=== PATIENT | female | born 1935 | race Caucasian/White ===

== ENCOUNTER → 2016-11-25 | Outpatient (CLI) | payer OTHER, BC ==
[~2016-11-25] MED LIST: ACTEMRA80 MG/4 ML; APHEN325 MG PO; ASPIRIN81 M2 PO; AZITHROMYCIN 2250 MG; CALCIUM 600 +1 EAC1 PO; CEFTIN 250 MG250 MG PO; CELEBREX 200 M200 M1 PO; CIPROFLOXACIN500 M1 PO; CLIMARA 0.00.0375 MG SUBQ; COLACE 100 MG100 MG PO; COLACE100 MG PO; ENOXAPARIN30 MG/0.3 SQ; ESTRACE PO; FERREX-150 PLU150 MG PO; FISH OIL 1,001000 M1 PO; FISH OIL 1,001000 M2 PO; FLAGYL500 MG PO; FOLIC ACID1 MG PO; HYDROCODON-ACE1 EAC7 PO; HYDROCODON-ACE1 EAC8 PO; LIPITOR 20 MG T20 M1 PO; LORTAB 5 MG/5001 TA1 PO; LORTAB 7.5-3251 EACH PO; MAGNESIUM250 M1 PO; METFORMIN HCL500 MG PO; METHOTREXATE 22.5 MG PO; MIRALAX17 GM PO; MIRALAX255 GM PO; MULTIVITAMINS PO; MULTIVITAMINS1 EAC7 PO; NORCO 5-325 TA1 EACH PO; OXYCODONE-ACET1 EACH PO; PAIN RELIEVER325 MG PO; POTASSIUM20 PO; PREDNISONE 10 M10 MG PO; PREDNISONE 20 M20 M1 PO; PREDNISONE 5 MG5 M1 PO; PRILOSEC40 MG PO; PROTONIX40 M1 PO; SERTRALINE HCL50 MG PO; SIMVASTATIN40 MG PO; TRAMADOL 50 MG50 MG PO; TRILEPTAL150 MG PO; VICODIN 5-5001 EACH PO; VITAMIN D 5050000 I1 PO; ZOCOR 10 MG TAB10 MG PO; ZOFRAN ODT4 MG PO; ZOLOFT 50 MG TA50 M1 PO; ZOLOFT25 MG PO; ZPAK PO; ZYRTEC10 M2 PO
== END ==
LOC: RAD 11:16
DX: R06.02 Shortness of breath (principal)

== ENCOUNTER 2016-11-27 07:36 | Inpatient (IN) | payer OTHER, BC ==
[~2016-11-27] VITALS: Ht 154.9 cm; Wt 72.1 kg
--- NOTE | ~2016-11-27 | 2DMMODE ---
[facility] [address] [facility] [place] [address] 2 D/M-MODE ECHOCARDIOGRAM Name: BRIELLE HALE TINA Room #: 207-P [facility] IN ..#: [id number] Admission: 11/27/16 Attend Phys: Randall Richardson MD Discharge: Date of : 37 Date of Service: 11/28/16 1311 Report #: [id number] THIS REPORT FOR: //name// APPROVED REPORT Study performed: 11/28/2016 10:11:46 EXAM: Comprehensive 2D, Doppler, and color-flow Echocardiogram Patient Location: Bedside Room #: 207 Blood Pressure: 122/63 mmHg HR: 86 bpm Other Information Study Quality: Good Indications Atrial Fibrillation 2D Dimensions LVEF(%): 48.15 (>50%) IVSd: 8.35 (7-11mm) LVOT Diam: 18.00 (18-24mm) LVDd: 41.39 mm PWd: 8.89 (7-11mm) Ascending Ao: 28.07 (22-36mm) LVDs: 31.48 (25-40mm) Aortic Root: 29.80 mm Lee's LVEF: 48.15 % Volumes Left Atrial Volume (Systole) Single Plane 4CH: 29.28 mL Single Plane 2CH: 14.81 mL LA ESV Index: 15.00 mL/m2 Aortic Valve AoV Peak Jimmy.: 0.97 m/s AO Peak Gr.: 4.20 mmHg LVOT Max P.89 mmHg LVOT Max V: 0.69 m/s Mitral Valve E/A Ratio: 0.8 MV Decel. Time: 210.47 ms MV E Max Jimmy.: 0.52 m/s [facility] [address] [place] [address] 2 D/M-MODE ECHOCARDIOGRAM Name: BRIELLE HALEN Room #: 207-[facility] IN [facility].#: [id number] Admission: 11/27/16 Attend Phys: Randall Richardson MD Discharge: Date of : 37 Date of Service: 11/28/16 1311 Report #: [id number] MV A Jimmy.: 0.67 m/s MV PHT: 61.04 ms Pulmonary Valve PV Peak Jimmy.: 0.70 m/s PV Peak Gr.: 1.99 mmHg MI End Vmax: 1.15 m/s Tricuspid Valve TR Peak Jimmy.: 2.65 m/s RAP Estimate: 5.00 mmHg TR Peak Gr.: 28.01 mmHg PA Pressure: 33.00 mmHg Left Ventricle The left ventricle is normal size. There is normal LV segmental wall motion. There is normal left ventricular wall thickness. Left ventricular systolic function is normal. The left ventricular ejection fraction is within the normal range. LVEF is 55-60%. Grade I - abnormal relaxation pattern. Right Ventricle The right ventricle is normal size. The right ventricular systolic function is normal. Atria The left atrium size is normal. The right atrium size is normal. Aortic Valve The aortic valve is normal in structure. No aortic regurgitation is present. There is no aortic valvular stenosis. Mitral Valve The mitral valve is normal in structure. Trace mitral regurgitation. No evidence of mitral valve stenosis. Tricuspid Valve The tricuspid valve is normal in structure. Trace tricuspid regurgitation. Pulmonic Valve The pulmonary valve is normal in structure. There is no pulmonic valvular regurgitation. Great Vessels The aortic root is normal in size. IVC is normal in size and collapses with >50% inspiration [facility] [address] [place] [address] 2 D/M-MODE ECHOCARDIOGRAM Name: BRIELLE HALEN Room #: 207-P [facility] IN .R.#: [id number] Admission: 11/27/16 Attend Phys: Randall Richardson MD Discharge: Date of : 37 Date of Service: 11/28/16 1311 Report #: [id number] Pericardium There is no pericardial effusion. <Conclusion> Left ventricular systolic function is normal. There is normal LV segmental wall motion. LVEF 55-60%. Grade I - abnormal relaxation pattern. The aortic valve is normal in structure. No aortic regurgitation or stenosis The mitral valve is normal in structure. No mitral regurgitation. Pulmonary artery pressure of 30mmHg. There is no pericardial effusion. <ELECTRONICALLY SIGNED> By: Kvng Yuan MD, [facility] 11/28/16 131 10 10 Kvng Yuan MD, FAC /INF
--- NOTE | ~2016-11-27 | EKG ---
[address] [employer] [place] [place] [address] ELECTROCARDIOGRAM REPORT Name: ALEXIABRIELLEKELSEY CARDOSOLYN Room #: 207-P ADM IN M.R.#: [id number] Admission: 11/27/16 Attend Phys: Santosh Seymour DO Discharge: Date of : 36 Report #: [id number] THIS REPORT FOR: //name// [facility] ED Test Date: 2016-11-27 Test Time: 07:47:35 Pat Name: BRIELLE HALE Department: Room: 207 Gender: F School Secretary: Holly BENTLEY : 1935 Requested By: Jb Castro Order Number: [id number] MD: Kvng Yuan Measurements Intervals [place] Rate: 139 P: 0 [place]: 136 QRS: -62 QRSD: 104 T: 102 QT: 347 QTc: 528 Interpretive Statements Supraventricular tachycardia occasional premature ventricular complexes left anterior hemiblock nonspecific intraventricular conduction delay no previous ECGs available for comparison Electronically Signed On 11-29-2016 8:50:41 CDT by Kvng Yuan [email or web address] <ELECTRONICALLY SIGNED> By: Kvng Yuan MD, [facility] 11/29/16 0850 Kvng Yuan MD, [facility] /EPI
--- NOTE | ~2016-11-27 | HC ---
[facility] [place] [address] CONSULTATION Name: BRIELLE HALEN Room #: 207-P ADM IN M.R.#: [id number] Admission: 11/27/16 Attend Phys: Randall Richardson MD Discharge: Date of : 36 Report #: [id number] THIS REPORT FOR: //name// CC: Micheal Richardson HISTORY OF PRESENT ILLNESS: The patient is an 81-year-old female, never seen Cardiology before, Dr. Mazariegos's patient, admitted by Dr. Montes who is the hospitalist at least for this weekend. She had been having some progressive shortness of breath and dyspnea and at times has had this chest heaviness and pressure, the worse was 2 weeks ago and that seemed to last all night. That was intermittent. She had marked decrease in exercise tolerance since that event 2 weeks ago. Not precipitated by any significant exertion, but she does note a marked decreased in which she has been able to do, can no longer go up a flight of stairs and that is something very unusual for her. She denies PND, orthopnea. She still lies flat in bed. Perhaps some slight intermittent edema. She does not. as I stated, have significant cardiac history, but has had intermittent pressure, shortness of breath, and does not feel the palpitations, but she presented in atrial fibrillation with rapid ventricular response with a rate in the 140 to 150. She subsequently converted on a Cardizem drip, which had been initiated in the ER. She did not have any syncope or presyncope but did have some dizzy or some lightheadedness. Her medications have been Protonix 40, simvastatin 40, folic acid, prednisone, vitamin D, Colace, potassium 20, and then more recently has had some Ceftin and metronidazole for perhaps some diarrhea issue. 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 Todd. I do not have any other records of that. SOCIAL HISTORY: She is a social drinker. Nonsmoker. . No biological children. FAMILY HISTORY: Positive, mother had an infarct at 62, siblings have not had any issues. REVIEW OF SYSTEMS: Negative except for the progressive dyspnea, shortness of breath, and as stated above. LABORATORY DATA: Chemistry, potassium 3.9, creatinine 1.1, glucose 145. Troponin negative. BNP 343. No liver function test. H and H 14 and 41, white count 7.6. CURRENT MEDICATIONS: Folic acid, prednisone, Protonix, cefuroxime [address] [facility] [address] [place] [address] CONSULTATION Name: BRIELLE HALE TINA Room #: 207-P ADM IN M.R.#: [id number] Admission: 11/27/16 Attend Phys: Randall Richardson MD Discharge: Date of : 37 Report #: [id number] potassium, diltiazem drip now at 5 mg an hour. PHYSICAL EXAMINATION: VITAL SIGNS: Blood pressure 100/60, pulse is currently 80 and regular. HEENT: Eyes reveal xanthelasmas. Pharynx is clear. NECK: Shows preserved upstrokes without JVD or bruits. LUNGS: Clear. CARDIOVASCULAR: Regular rate and rhythm, S1, S2. There is a faint holosystolic murmur. ABDOMEN: Soft. No HSM or abdominal bruit. EXTREMITIES: Reveal trace of edema. Distal pulses were intact. NEUROLOGIC: Nonfocal. SKIN: Warm and dry without xanthoma or ulcer. MUSCULOSKELETAL: Some generalized arthritic changes, some slight bogginess of the hand joints and valgus deformity of the knee, prior scars. ASSESSMENT: 1. Atrial fibrillation with rapid ventricular response. 2. Recurrent chest pain, possible anginal equivalent. 3. History of bronchitis, recurrent cough. 4. Hypertension. 5. Rheumatoid arthritis. 6. History of, she was told, inflammatory bowel disease. I do not have those records. RECOMMENDATIONS AND PLAN: Continue the Cardizem drip. There was a chest x-ray obtained in Dr. Mazariegos's office on Monday, which we do not yet have the result and may be will get it in the morning. It probably could certainly be a component of heart failure here adding to this recurrent cough, although not supported by much of an elevated BNP. We would anticoagulate, at least give a dose of Lovenox b.i.d. therapeutically as we certainly would entertain long-term anticoagulation based on this AFib, perhaps with an ____ agent we can decided that at later hospitalization, echo Doppler in the morning. Agree with the antibiotics, may in fact need nuclear stress testing in addition, because of the recurrent chest pressure, heaviness, which is going on for the last 2 weeks unless we would find a significant wall motion abnormality on the echo or valvular issue, then one could consider cardiac catheterization as there is no history of any prior structural abnormality of the heart or ischemic disease. This has been discussed with the patient. There is no family present. We will follow with you. Thank you for asking me to assist in the care of this patient. <ELECTRONICALLY SIGNED> By: Dimitri Cox MD, [facility] 11/28/16 0815 1604 2125 Dimitri Cox MD, [facility] /nt
--- NOTE | ~2016-11-27 | EKG ---
[address] [place] [address] ELECTROCARDIOGRAM REPORT Name: HALEBRIELLE Room #: 207-P ADM IN M.R.#: [id number] Admission: 11/27/16 Attend Phys: Randall Richardson MD Discharge: Date of : 36 Report #: [id number] THIS REPORT FOR: //name// [facility] Test Date: 2016-11-28 Test Time: 06:39:03 Pat Name: BRIELLE HALE Department: Room: 207 P Gender: F Tree Pruner: joni : 1935 Requested By: Dimitri Cox Order Number: [id number] MD: Kvng Yuan Measurements Intervals [place] Rate: 92 P: -13 [place]: 145 QRS: -62 QRSD: 98 T: 77 QT: 375 QTc: 464 Interpretive Statements Sinus rhythm Left anterior fascicular block Abnormal R-wave progression, late transition Left ventricular hypertrophy No previous ECGs available for comparison Electronically Signed On 11-28-2016 9:28:13 CDT by Kvng Yuan [email or web address] <ELECTRONICALLY SIGNED> By: Kvng Yuan MD, [facility] 11/28/16 0928 0639 0639 Kvng Yuan MD, [facility] /EPI
--- NOTE | ~2016-11-27 | H ---
[facility] [place] [address] HISTORY AND PHYSICAL Name: BRIELLE HALE Room #: 207-P ADM IN M.R.#: [id number] Admission: 11/27/16 Attend Phys: Santosh Seymour DO Discharge: Date of : 36 Report #: [id number] THIS REPORT FOR: //name// CC: Micheal Richardson DATE OF SERVICE: 11/27/2016 CHIEF COMPLAINT: Shortness of air. HISTORY OF PRESENT ILLNESS: The patient is an 81-year-old female who states over the past week or so, she became more short of breath. She feels like she has an elephant sitting on her chest at times. She apparently had been to her primary care doctor's office yesterday for this who did an EKG and which she said was unchanged, and a chest x-ray which she does not have a report from. She does note that her heart has been racing off and on in the past couple of weeks as well. PAST MEDICAL AND SURGICAL HISTORY: Significant for prior back surgeries, bilateral hip replacements, bilateral shoulder replacements, gallbladder surgery, hysterectomy, glaucoma, depression, hyperlipidemia, reflux, knee replacement and hyperlipidemia. CURRENT MEDICATIONS: Protonix 40 mg a day, simvastatin 40 mg a day, folic acid 1 mg a day, prednisone 10 mg a day, vitamin D 50,000 units twice a month, magnesium day, Colace b.i.d., Tylenol p.r.n., potassium 20 mEq two a day, Ceftin and metronidazole in the very recent time. ALLERGIES: To TRAMADOL, GABAPENTIN, CIPRO and AUGMENTIN. SOCIAL HISTORY: She is a nonsmoker. She does drink occasionally but no recreational drugs. REVIEW OF SYSTEMS: CONSTITUTIONAL: No fever or chills. HEENT: No headaches or visual changes. CHEST: See above. GASTROINTESTINAL: No nausea, vomiting, diarrhea or constipation. GENITOURINARY: No burning or frequency. EXTREMITIES: No new swelling, no joint pains. SKIN: No new rashes or wounds. NEUROLOGIC: No new numbness or weakness. PHYSICAL EXAMINATION: VITAL SIGNS: Blood pressure 142/79, pulse is 142, respiratory rate 21 and O2 sat was 75% on room air. She was placed on oxygen. [address] [address] HISTORY AND PHYSICAL Name: BRIELLE HALE Room #: 207-[facility] IN .R.#: [id number] Admission: 11/27/16 Attend Phys: Santosh Seymour DO Discharge: Date of : 36 Report #: [id number] GENERAL: She is currently more comfortable, she is in no acute distress. Her mucous membranes are moist. NECK: Supple, without adenopathy, thyromegaly or bruits. CHEST: Shows decreased breath sounds in the bases, but otherwise clear. No wheezes. CARDIOVASCULAR: She has tachycardia, rate variable from 90 to 110, it was higher when she first presented, it is irregular, no S4. ABDOMEN: Soft, no masses. Bowel sounds are active. EXTREMITIES: Show no edema. DIAGNOSTIC DATA: EKG showed atrial fibrillation with RVR, rate of 139. No ST segment changes. LABORATORY DATA: Sodium 139, potassium 3.9, chloride 105, bicarb 23, BUN 14, creatinine 1.1 and glucose 145. Troponin less than 0.04. BNP 243. WBC 7.6, hemoglobin 14.1 and hematocrit 41.0 and platelet count 186, 62 segs and 19 lymphs. Chest x-ray shows decreased inspiration, but actually improvement in her baseline ____ from previous. ASSESSMENT AND PLAN: 1. Atrial fibrillation with rapid ventricular response. She has been given a dose of Cardizem, her rate is coming down. We will consult Cardiology for that. She will likely stay on the Cardizem drip. She will need cardiac workup for etiology including echo and likely a stress test as well. 2. Recent bronchitis. We will go ahead and treat her with anti-cough medicines and antibiotics. <ELECTRONICALLY SIGNED> By: Chaz Montes MD 12/02/16 1448 1138 1342 Chaz Montes MD /nt
--- NOTE | ~2016-11-27 | HC ---
[facility] [place] [address] CONSULTATION Name: BRIELLE HALE Room #: 207-P ADM IN M.R.#: [id number] Admission: 11/27/16 Attend Phys: Santosh Seymour DO Discharge: Date of : 36 Report #: [id number] THIS REPORT FOR: //name// CC: Micheal COLON DATE OF CONSULTATION: 11/29/16 PRIMARY CARE PHYSICIAN: Dr. Micheal Mazariegos. REFERRAL PHYSICIAN: Dr. Santosh Seymour. REASON FOR REFERRAL: Infiltrates and dyspnea. HISTORY OF PRESENT ILLNESS: The patient is an 81-year-old white female who presents to the hospital with progressive dyspnea. Since admission, chest x-ray and CT chest revealed bilateral interstitial infiltrates. A Pulmonary consultation was requested. The patient is known to this physician from her last hospitalization in August 2014. She was seen for interstitial lung disease. CT chest at that time revealed ground glass opacity. The patient also had a CT chest angiogram performed overnight showing extensive bilateral ground glass opacity. The patient has long history of rheumatoid arthritis for the last 30 years. She is followed by Dr. Avni Colon. She has been and continues to be on immunotherapy for her rheumatoid arthritis. Since her last admission in 2014, she has been doing fairly well until 2 weeks prior to presentation when she started developing increasing dyspnea. She denies any fever, night sweats or chills, productive cough or hemoptysis. Since admission, the patient had an echocardiogram, which was felt to be unremarkable with ejection fraction approximately 55%. She was also found to be in atrial fibrillation with rapid ventricular response, which has stabilized since admission. Otherwise, she does note that her dyspnea has worsened. She is requiring more O2 from 2 liters up to 12 to 10 liters per nasal cannula. She denies any chest pain at the moment or hemoptysis. PAST MEDICAL HISTORY: As mentioned above with long history of rheumatoid arthritis over the last 30 years, gastroesophageal reflux disease, dyslipidemia, [facility] [address] [place] [address] CONSULTATION Name: BRIELLE HALE Room #: 207-P [facility] IN .R.#: [id number] Admission: 11/27/16 Attend Phys: Santosh Seymour DO Discharge: Date of : 36 Report #: [id number] chronic back pain on chronic narcotics, status post spinal cord stimulator implantation, multiple back surgeries, bilateral hip surgery, shoulder surgery along with cervical spine surgery, left knee surgery, cholecystectomy, hysterectomy. ALLERGIES: Augmentin, ciprofloxacin, Neurontin, reactions unspecified. CURRENT MEDICATIONS: Diltiazem, Rocephin, azithromycin, metformin, amiodarone, prednisone 10 mg once a day, Protonix, Lovenox. FAMILY HISTORY: Noncontributory. SOCIAL HISTORY: She is , lives with her , she denies any tobacco or alcohol use. REVIEW OF SYSTEMS: As mentioned above, otherwise 10-point system review negative. PHYSICAL EXAMINATION: GENERAL: She is awake, alert, in mild respiratory distress. VITAL SIGNS: Temperature is 98.7 degrees Fahrenheit, pulse is 84, respiratory rate is 18, blood pressure 127/72 mmHg, and saturation 92% on 12 liters Of O2. HEENT: Normocephalic, atraumatic. NECK: Supple without any lymphadenopathy or thyromegaly. CHEST: Breath sounds are fair with coarse crackles in the bases. No wheezes. CARDIOVASCULAR: Normal S1, S2. There are no obvious murmurs or gallop. Pulses are 2+/4+ bilaterally. BREASTS: Deferred. ABDOMEN: Soft, nontender; no organomegaly or masses felt. GENITOURINARY: Deferred. RECTAL: Deferred. EXTREMITIES: No cyanosis, clubbing or edema. Arthritic changes are noted in both hands. LABORATORY DATA: CT chest angiogram as mentioned above showing extensive bilateral ground glass opacity, no evidence of pulmonary embolus, small pleural effusion on the right. Echocardiogram again showing EF of 55%-60%, aortic valve is normal, mitral valve is normal; pulmonary artery pressure measured 30 mmHg. Nuclear cardiac stress test was felt to be low probability for coronary artery disease. Electrolytes unremarkable with a creatinine of 0.8, hemoglobin 12.4,WBC 7600, platelets are normal. IMPRESSION: 1. Extensive bilateral ground glass opacity in this 81-year-old white female with long history of rheumatoid arthritis. Chest x-ray and CT chest angiogram show bilateral interstitial infiltrates. She has been relatively afebrile [address] [address] CONSULTATION Name: ALEXIABRIELLE CARDOSOLYN Room #: 207-P [facility] IN M.R.#: [id number] Admission: 11/27/16 Attend Phys: Santosh Seymour DO Discharge: Date of : 36 Report #: [id number] without productive cough or leukocytosis. In 2015, the patient had a similar presentation with ground glass opacity. Etiology likely related to inflammatory process, probably related to rheumatoid arthritis. Pneumonia is possible including atypical, though is felt to be less likely. Heart failure is felt to be less likely given normal ejection fraction. 2. Long history of rheumatoid arthritis over the last 30 years. She is on chronic corticosteroids. 3. Acute hypoxic respiratory failure due to above processes. 4. Mild pulmonary hypertension. 5. 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 RECOMMENDATION: Would increase corticosteroids for now, would complete a course of antibiotics. We will consult Dr. Colon who has been following this patient. Obtain rheumatoid factor. If clinically worse, the patient would benefit from diagnostic bronchoscopy along with bronchial lavage to rule out optimistic infection given immunosuppressed status. The findings were discussed in detail with the patient. She voices understanding. Thank you for this consultation. <ELECTRONICALLY SIGNED> By: Dave Tony MD 11/30/16 1322 1109 0216 Dave Tony MD /nt
[2016-11-27 07:36] VITALS: BP 142/79
[~2016-11-27 07:36] MED LIST changes: -ACTEMRA80 MG/4 ML; -FISH OIL 1,001000 M2 PO; -LIPITOR 20 MG T20 M1 PO; -LORTAB 7.5-3251 EACH PO; -METFORMIN HCL500 MG PO; -MIRALAX17 GM PO; -MULTIVITAMINS1 EAC7 PO; -SERTRALINE HCL50 MG PO
[2016-11-27 08:06] LABS: ABSOLUTE NEUTROPHILS 4.8 thou/uL (1.4-8.2); BASOPHILS 0.8 % (0.0-2.0); EOSINOPHILS 9.9 % (0.0-3.0); HEMOGLOBIN 14.1 gm/dL (12.0-15.0); LYMPHOCYTES 19.3 % (24.0-44.0); MCH 32.9 pg (26.0-34.0); MCHC 34.3 g/dL (28.0-37.0); MCV 96.2 fL (80.0-100.0); MONOCYTES 7.2 % (1.0-8.0); PLATELET COUNT 186 thou/uL (150-400); POLYS 62.8 % (36.0-66.0); RBC 4.27 mil/uL (4.20-5.00); RDW 15.1 % (10.5-14.5); WBC 7.6 thou/uL (4.0-11.0)
[2016-11-27 08:11] LABS: ANION GAP 11 mmol/L (7-16); BUN 14 mg/dL (7-18); CALCIUM 8.7 mg/dL (8.5-10.1); CHLORIDE 105 mmol/L (98-107); CO2 23 mmol/L (21-32); CREATININE 1.1 mg/dL (0.6-1.0); GLUCOSE 145 mg/dL (74-106); POTASSIUM 3.9 mmol/L (3.5-5.1); SODIUM 139 mmol/L (136-145)
[2016-11-27 08:23] LABS: TROPONIN-I < 0.04 ng/mL (<0.04-0.07)
[2016-11-27 08:25] LABS: NT-PRO BRAIN NAT PEPTIDE 343 pg/mL (<300)
[2016-11-27 08:39] LABS: MANUAL DIFF NO
[2016-11-27] MEDS ORDERED: LORTAB 7.5-3251 EACH PO (10:46)
[2016-11-27] MEDS ORDERED: METHOTREXATE 22.5 MG PO (10:54)
[2016-11-27] MEDS ORDERED: SERTRALINE HCL50 MG PO (10:55)
[2016-11-27] MEDS ORDERED: METFORMIN HCL500 MG PO (10:58)
[2016-11-27] MEDS ORDERED: LIPITOR 20 MG T20 M1 PO (10:58)
[2016-11-27] MEDS ORDERED: MIRALAX17 GM PO (10:59)
[2016-11-27] MEDS ORDERED: MULTIVITAMINS1 EAC7 PO (11:02)
[2016-11-27] MEDS ORDERED: FISH OIL 1,001000 M2 PO (11:02)
[2016-11-27] MEDS ORDERED: ACTEMRA80 MG/4 ML (11:06)
[2016-11-27 16:10] VITALS: BP 102/73
[2016-11-27 19:29] VITALS: BP 120/58
[2016-11-27 23:39] VITALS: BP 107/59
[2016-11-28 00:52] VITALS: BP 139/71
[2016-11-28 03:36] VITALS: BP 133/54
[2016-11-28 03:43] LABS: CALCIUM 7.7 mg/dL (8.5-10.1); CREATININE 0.8 mg/dL (0.6-1.0)
[2016-11-28 03:51] LABS: POTASSIUM 2.9 mmol/L (3.5-5.1)
[2016-11-28 07:38] VITALS: BP 122/63
[2016-11-28 12:17] VITALS: BP 131/77
[2016-11-28 16:30] VITALS: BP 130/72
[2016-11-28 19:56] VITALS: BP 101/74
[2016-11-29 04:04] VITALS: BP 127/41
[2016-11-29 07:45] VITALS: BP 127/76
[2016-11-29 07:47] LABS: HEMATOCRIT 35.9 % (37.0-47.0); HEMOGLOBIN 12.4 gm/dL (12.0-15.0); MCH 33.1 pg (26.0-34.0); MCHC 34.4 g/dL (28.0-37.0); RBC 3.74 mil/uL (4.20-5.00); RDW 15.2 % (10.5-14.5); WBC 7.6 thou/uL (4.0-11.0)
[2016-11-29 11:15] VITALS: BP 124/63
[2016-11-29 16:50] VITALS: BP 130/57
[2016-11-29 19:30] VITALS: BP 130/69
[2016-11-30 03:22] VITALS: BP 120/63
[2016-11-30 04:23] LABS: HEMATOCRIT 35.2 % (37.0-47.0); MCH 32.5 pg (26.0-34.0); MCV 95.7 fL (80.0-100.0); RBC 3.68 mil/uL (4.20-5.00); RDW 14.9 % (10.5-14.5); WBC 7.8 thou/uL (4.0-11.0)
[2016-11-30 04:29] LABS: CALCIUM 8.7 mg/dL (8.5-10.1); CREATININE 0.8 mg/dL (0.6-1.0); POTASSIUM 3.7 mmol/L (3.5-5.1)
[2016-11-30 07:25] VITALS: BP 108/60
[2016-11-30 11:05] VITALS: BP 126/63
[2016-11-30 11:08] VITALS: BP 126/63
[2016-11-30 16:55] VITALS: BP 125/64
[2016-11-30 19:36] VITALS: BP 119/65
[2016-12-01 03:12] LABS: HEMATOCRIT 34.5 % (37.0-47.0); HEMOGLOBIN 11.5 gm/dL (12.0-15.0); MCH 32.3 pg (26.0-34.0); MCHC 33.4 g/dL (28.0-37.0); MCV 96.5 fL (80.0-100.0); RBC 3.58 mil/uL (4.20-5.00); RDW 15.2 % (10.5-14.5); WBC 15.4 thou/uL (4.0-11.0)
[2016-12-01 03:18] LABS: CALCIUM 8.3 mg/dL (8.5-10.1); CREATININE 0.8 mg/dL (0.6-1.0); POTASSIUM 3.9 mmol/L (3.5-5.1)
[2016-12-01 03:32] VITALS: BP 115/74
[2016-12-01 07:37] VITALS: BP 131/62
[2016-12-01 11:21] VITALS: BP 143/109
[2016-12-01 15:09] VITALS: BP 116/65
[2016-12-01 19:57] VITALS: BP 150/80
[2016-12-02 03:21] VITALS: BP 137/79
[2016-12-02 06:20] LABS: HEMATOCRIT 33.8 % (37.0-47.0); HEMOGLOBIN 11.4 gm/dL (12.0-15.0); MCH 32.4 pg (26.0-34.0); MCHC 33.9 g/dL (28.0-37.0); MCV 95.6 fL (80.0-100.0); RBC 3.53 mil/uL (4.20-5.00); WBC 13.4 thou/uL (4.0-11.0)
[2016-12-02 06:31] LABS: CALCIUM 8.4 mg/dL (8.5-10.1); CREATININE 0.7 mg/dL (0.6-1.0); POTASSIUM 3.5 mmol/L (3.5-5.1)
[2016-12-02 08:04] VITALS: BP 134/93
[2016-12-02 12:25] VITALS: BP 133/79
[2016-12-02 15:45] VITALS: BP 139/76
[2016-12-02 19:53] VITALS: BP 122/60
[2016-12-03 04:29] LABS: HEMATOCRIT 31.7 % (37.0-47.0); HEMOGLOBIN 10.9 gm/dL (12.0-15.0); MCH 32.9 pg (26.0-34.0); MCHC 34.4 g/dL (28.0-37.0); MCV 95.7 fL (80.0-100.0); PLATELET COUNT 223 thou/uL (150-400); RBC 3.31 mil/uL (4.20-5.00); RDW 14.6 % (10.5-14.5); WBC 11.4 thou/uL (4.0-11.0)
[2016-12-03 04:42] LABS: CALCIUM 7.8 mg/dL (8.5-10.1); CREATININE 0.7 mg/dL (0.6-1.0); POTASSIUM 3.4 mmol/L (3.5-5.1)
[2016-12-03 04:58] VITALS: BP 112/63
[2016-12-03 05:05] LABS: MANUAL DIFF YES
[2016-12-03 07:15] VITALS: BP 124/67
[2016-12-03 07:58] LABS: ABSOLUTE NEUTROPHILS 10.7 thou/uL (1.4-8.2); METAMYELOCYTES 1 %; TOTAL CELL COUNT 100
[2016-12-03 11:50] VITALS: BP 141/75
[2016-12-03 16:20] VITALS: BP 125/63
[2016-12-03 19:44] VITALS: BP 134/72
[2016-12-03 20:00] VITALS: BP 143/78
[2016-12-04 04:20] VITALS: BP 122/67
[2016-12-04 05:31] LABS: HEMATOCRIT 31.5 % (37.0-47.0); HEMOGLOBIN 10.7 gm/dL (12.0-15.0); MCH 32.7 pg (26.0-34.0); MCV 96.2 fL (80.0-100.0); RBC 3.28 mil/uL (4.20-5.00); RDW 14.6 % (10.5-14.5); WBC 10.6 thou/uL (4.0-11.0)
[2016-12-04 05:41] LABS: ALBUMIN 2.4 g/dL (3.4-5.0); CALCIUM 8.1 mg/dL (8.5-10.1); CREATININE 0.7 mg/dL (0.6-1.0); PHOSPHORUS 3.7 mg/dL (2.5-4.9); POTASSIUM 3.9 mmol/L (3.5-5.1)
[2016-12-04 07:20] VITALS: BP 115/62
[2016-12-04 11:35] VITALS: BP 122/64
[2016-12-04 17:10] VITALS: BP 138/78
[2016-12-04 19:36] VITALS: BP 123/68
[2016-12-05 03:40] VITALS: BP 128/70
[2016-12-05 04:00] LABS: HEMATOCRIT 30.9 % (37.0-47.0); HEMOGLOBIN 10.5 gm/dL (12.0-15.0); MCH 32.4 pg (26.0-34.0); MCHC 34.1 g/dL (28.0-37.0); RBC 3.25 mil/uL (4.20-5.00); RDW 14.4 % (10.5-14.5); WBC 13.2 thou/uL (4.0-11.0)
[2016-12-05 04:23] LABS: ALBUMIN 2.4 g/dL (3.4-5.0); CALCIUM 7.5 mg/dL (8.5-10.1); CREATININE 0.7 mg/dL (0.6-1.0); TOTAL BILIRUBIN 0.3 mg/dL (<0.1-1.0); TOTAL PROTEIN 4.7 g/dL (6.4-8.2)
[2016-12-05 08:30] VITALS: BP 116/64
[2016-12-05 11:40] VITALS: BP 122/56
[2016-12-05 16:15] VITALS: BP 127/71
[2016-12-05 20:17] VITALS: BP 124/49
[2016-12-06 03:10] VITALS: BP 130/65
[2016-12-06 07:55] VITALS: BP 138/65
[2016-12-06 11:45] VITALS: BP 129/64
[2016-12-06 15:40] VITALS: BP 124/54
[2016-12-06 19:17] VITALS: BP 159/78
[2016-12-07 03:40] VITALS: BP 142/66
[2016-12-07 07:35] VITALS: BP 145/70
[2016-12-07] MEDS ORDERED: ELIQUIS5 MG PO (09:19)
[2016-12-07] MEDS ORDERED: CARDIZEM CD240 MG PO (09:20)
[2016-12-07] MEDS ORDERED: ACETAMINOPHEN325 M1 PO (09:20)
[2016-12-07] MEDS ORDERED: PREDNISONE 20 M20 M1 PO ×2 (09:21→09:26)
[2016-12-07] MEDS ORDERED: CEFUROXIME500 MG PO (09:22)
[2016-12-07 20:20] VITALS: BP 139/60
[2016-12-08 04:08] VITALS: BP 130/799
[2016-12-08 09:12] VITALS: BP 136/68
== END 2016-12-08 13:28 | DRG 177 ==
LOC: ER 07:36 → 2N 08:12 → EROBS 08:12 → 2N 13:33
PROVIDERS: Emergency Medicine; Family Medicine; Hospitalist; Internal Medicine Pulmonary Disease; Nurse Practitioner Adult Health
PROC: 02HV33Z Insertion of Infusion Device into Superior Vena Cava, Percutaneous Approach (ICD-10-PCS; principal; 2016-11-28)
PROC: B548ZZA Ultrasonography of Superior Vena Cava, Guidance (ICD-10-PCS; principal; 2016-11-28)
DX: J69.0 Pneumonitis due to inhalation of food and vomit (principal); J96.21 Acute and chronic respiratory failure with hypoxia; N17.9 Acute kidney failure, unspecified; F11.20 Opioid dependence, uncomplicated; E46 Unspecified protein-calorie malnutrition; I20.9 Angina pectoris, unspecified; I48.91 Unspecified atrial fibrillation; Z96.643 Presence of artificial hip joint, bilateral; Z96.612 Presence of left artificial shoulder joint; Z96.611 Presence of right artificial shoulder joint; F32.9 Major depressive disorder, single episode, unspecified; K21.9 Gastro-esophageal reflux disease without esophagitis; Z96.652 Presence of left artificial knee joint; I10 Essential (primary) hypertension; H40.9 Unspecified glaucoma; M06.9 Rheumatoid arthritis, unspecified; G89.29 Other chronic pain; M54.9 Dorsalgia, unspecified; I27.2 Other secondary pulmonary hypertension; E87.6 Hypokalemia; E78.5 Hyperlipidemia, unspecified; J84.9 Interstitial pulmonary disease, unspecified; F19.959 Other psychoactive substance use, unspecified with psychoactive substance-induced psychotic disorder, unspecified; D72.829 Elevated white blood cell count, unspecified; Z68.30 Body mass index [BMI] 30.0-30.9, adult; Z90.49 Acquired absence of other specified parts of digestive tract; Z90.710 Acquired absence of both cervix and uterus; Z98.42 Cataract extraction status, left eye; Z98.41 Cataract extraction status, right eye; Z88.1 Allergy status to other antibiotic agents; Z88.6 Allergy status to analgesic agent; Z88.8 Allergy status to other drugs, medicaments and biological substances; Z82.49 Family history of ischemic heart disease and other diseases of the circulatory system; Z79.899 Other long term (current) drug therapy
CPT/HCPCS: 10081; 27001

== ENCOUNTER → 2017-01-17 | Outpatient (CLI) | payer OTHER, BC ==
[~2017-01-17] MED LIST changes: +ACETAMINOPHEN325 M1 PO; +ACTEMRA80 MG/4 ML; +CARDIZEM CD240 MG PO; +CEFUROXIME500 MG PO; +ELIQUIS5 MG PO; +FISH OIL 1,001000 M2 PO; +LIPITOR 20 MG T20 M1 PO; +LORTAB 7.5-3251 EACH PO; +METFORMIN HCL500 MG PO; +MIRALAX17 GM PO; +MULTIVITAMINS1 EAC7 PO; +SERTRALINE HCL50 MG PO
== END ==
LOC: RAD 08:28
DX: J18.9 Pneumonia, unspecified organism (principal); M06.9 Rheumatoid arthritis, unspecified

== ENCOUNTER → 2017-02-01 | Outpatient (CLI) | payer OTHER, BC | LOC: RAD 11:37 | DX: M25.512 Pain in left shoulder (principal) ==

== ENCOUNTER → 2017-02-14 | Outpatient (CLI) | payer OTHER, BC | LOC: RAD 12:30 | DX: M47.896 Other spondylosis, lumbar region (principal) ==

== ENCOUNTER 2017-05-21 14:56 | Emergency (ER) | payer OTHER, BC ==
[~2017-05-21] VITALS: Ht 160 cm; Wt 65.8 kg
[2017-05-21 16:11] LABS: ABSOLUTE NEUTROPHILS 8.6 thou/uL (1.4-8.2); BASOPHILS 0.4 % (0.0-2.0); EOSINOPHILS 0.2 % (0.0-3.0); HEMATOCRIT 40.1 % (37.0-47.0); HEMOGLOBIN 13.3 gm/dL (12.0-15.0); LYMPHOCYTES 13.2 % (24.0-44.0); MCHC 33.2 g/dL (28.0-37.0); MCV 93.4 fL (80.0-100.0); MONOCYTES 3.8 % (1.0-8.0); PLATELET COUNT 199 thou/uL (150-400); POLYS 82.4 % (36.0-66.0); RBC 4.29 mil/uL (4.20-5.00); RDW 14.4 % (10.5-14.5); WBC 10.4 thou/uL (4.0-11.0)
[2017-05-21 16:13] LABS: MANUAL DIFF NO
[2017-05-21 16:23] LABS: CALCIUM 9.1 mg/dL (8.5-10.1); CREATININE 0.8 mg/dL (0.6-1.0)
[2017-05-21 16:27] LABS: POTASSIUM 4.2 mmol/L (3.5-5.1)
[2017-05-21] MEDS ORDERED: NORCO 10-325 T1 EACH PO (16:43)
[2017-05-21 17:11] VITALS: BP 153/74
== END 2017-05-21 17:12 | disposition home or self-care (01) ==
LOC: ER 14:56
PROVIDERS: Nurse Practitioner
DX: M25.552 Pain in left hip (principal); M06.9 Rheumatoid arthritis, unspecified; F32.9 Major depressive disorder, single episode, unspecified; E78.00 Pure hypercholesterolemia, unspecified; K21.9 Gastro-esophageal reflux disease without esophagitis; I48.91 Unspecified atrial fibrillation; Z96.611 Presence of right artificial shoulder joint; Z96.612 Presence of left artificial shoulder joint; Z96.652 Presence of left artificial knee joint; Z90.49 Acquired absence of other specified parts of digestive tract; Z88.1 Allergy status to other antibiotic agents; Z88.8 Allergy status to other drugs, medicaments and biological substances; Z96.643 Presence of artificial hip joint, bilateral

== ENCOUNTER → 2017-05-25 | Outpatient (CLI) | payer OTHER, BC ==
[~2017-05-25] MED LIST changes: +NORCO 10-325 T1 EACH PO
== END ==
LOC: RAD 00:24
DX: Z12.31 Encounter for screening mammogram for malignant neoplasm of breast (principal)

== ENCOUNTER → 2017-07-07 | Outpatient (CLI) | payer OTHER, BC ==
[~2017-07-07] MED LIST changes: +ALDACTONE25 MG PO; +ANTIVERT25 MG PO; +BUTRANS1 EAC1 PO; +BUTRANS1 EAC1 TRANSDERM; +COMPAZINE5 M1 PO; +GABAPENTIN100 MG PO; +HYDROCODON-ACE1 EAC5 PO; +KLOR-CON 1010 MEQ PO; +LIPITOR10 MG PO; +LOPRESSOR50 PO; +METHADONE HCL5 MG PO; +MS CONTIN15 MG PO; +NORCO 7.5-3251 EACH PO; +OXYCODONE-ACET1 EAC2 PO; +POTASSIUM GLUC500 MG PO; +RITUXAN100 MG/10; +VITAMIN D1000 UNI1 PO; +VITAMIN D5000 UNIT PO; +XARELTO20 MG PO
== END ==
LOC: RAD 13:25
DX: J84.9 Interstitial pulmonary disease, unspecified (principal); M47.894 Other spondylosis, thoracic region

== ENCOUNTER 2017-09-16 11:24 | Emergency (ER) | payer OTHER, BC ==
[~2017-09-16] VITALS: Ht 154.9 cm; Wt 68.5 kg
[~2017-09-16 11:24] MED LIST changes: -ALDACTONE25 MG PO; -ANTIVERT25 MG PO; -BUTRANS1 EAC1 PO; -BUTRANS1 EAC1 TRANSDERM; -COMPAZINE5 M1 PO; -GABAPENTIN100 MG PO; -HYDROCODON-ACE1 EAC5 PO; -KLOR-CON 1010 MEQ PO; -METHADONE HCL5 MG PO; -MS CONTIN15 MG PO; -NORCO 7.5-3251 EACH PO; -OXYCODONE-ACET1 EAC2 PO; -POTASSIUM GLUC500 MG PO; -RITUXAN100 MG/10; -VITAMIN D1000 UNI1 PO; -VITAMIN D5000 UNIT PO
[2017-09-16] MEDS ORDERED: VITAMIN D1000 UNI1 PO (11:54)
[2017-09-16] MEDS ORDERED: ALDACTONE25 MG PO (11:56)
[2017-09-16] MEDS ORDERED: RITUXAN100 MG/10 (11:58)
[2017-09-16 12:27] LABS: ABSOLUTE NEUTROPHILS 5.5 thou/uL (1.4-8.2); BASOPHILS 0.7 % (0.0-2.0); HEMATOCRIT 39.7 % (37.0-47.0); HEMOGLOBIN 13.4 gm/dL (12.0-15.0); LYMPHOCYTES 24.1 % (24.0-44.0); MCH 32.1 pg (26.0-34.0); MCHC 33.7 g/dL (28.0-37.0); MCV 95.4 fL (80.0-100.0); MONOCYTES 8.9 % (1.0-8.0); PLATELET COUNT 192 thou/uL (150-400); POLYS 64.3 % (36.0-66.0); RBC 4.16 mil/uL (4.20-5.00); RDW 13.9 % (10.5-14.5); WBC 8.6 thou/uL (4.0-11.0)
[2017-09-16 12:38] LABS: CALCIUM 9.2 mg/dL (8.5-10.1); CREATININE 0.9 mg/dL (0.6-1.0); POTASSIUM 3.3 mmol/L (3.5-5.1)
[2017-09-16 12:40] LABS: PROTIME 10.7 Seconds (9.3-11.4)
[2017-09-16] MEDS ORDERED: COMPAZINE5 M1 PO (14:00)
[2017-09-16 15:05] VITALS: BP 151/96
[2017-11-13] MEDS ORDERED: POTASSIUM GLUC500 MG PO (13:20)
[2017-11-13] MEDS ORDERED: GABAPENTIN100 MG PO (13:54)
[2018-02-08] MEDS ORDERED: MS CONTIN15 MG PO ×2 (10:55→12:51)
[2018-02-22] MEDS ORDERED: OXYCODONE-ACET1 EAC2 PO (10:06)
[2018-03-22] MEDS ORDERED: LIPITOR10 MG PO (10:12)
[2018-04-05] MEDS ORDERED: BUTRANS1 EAC1 PO (10:49)
[2018-04-05] MEDS ORDERED: BUTRANS1 EAC1 TRANSDERM (11:40)
[2018-04-16] MEDS ORDERED: PREDNISONE 5 MG5 M1 PO (05:43)
[2018-04-16] MEDS ORDERED: VITAMIN D5000 UNIT PO (09:38)
[2018-04-16] MEDS ORDERED: METHADONE HCL5 MG PO (10:17)
[2018-05-02] MEDS ORDERED: ANTIVERT25 MG PO (05:22)
== END 2017-09-16 15:07 | disposition home or self-care (01) ==
LOC: ER 11:24
PROVIDERS: Emergency Medicine
DX: R51 Headache (principal); R42 Dizziness and giddiness; I10 Essential (primary) hypertension; I48.91 Unspecified atrial fibrillation; Z96.612 Presence of left artificial shoulder joint; Z96.611 Presence of right artificial shoulder joint; Z88.1 Allergy status to other antibiotic agents; Z88.8 Allergy status to other drugs, medicaments and biological substances

== ENCOUNTER → 2018-01-29 | Outpatient (CLI) | payer OTHER, BC ==
[~2018-01-29] MED LIST changes: +ALDACTONE25 MG PO; +COMPAZINE5 M1 PO; +GABAPENTIN100 MG PO; +POTASSIUM GLUC500 MG PO; +RITUXAN100 MG/10; +VITAMIN D1000 UNI1 PO
== END ==
LOC: RAD 10:59
DX: J84.9 Interstitial pulmonary disease, unspecified (principal); M41.85 Other forms of scoliosis, thoracolumbar region; J98.4 Other disorders of lung

== ENCOUNTER → 2018-02-08 | Outpatient (CLI) | payer OTHER, BC ==
[~2018-02-08] VITALS: Ht 154.9 cm; Wt 73.1 kg
[~2018-02-08] MED LIST changes: +MS CONTIN15 MG PO
--- NOTE | ~2018-02-08 | HPC ---
[facility] [place] [address] PAIN MANAGEMENT CONSULTATION Name: BRIELLE HALE Room #: REG [facility].#: [id number] Admission: 02/08/18 Attend Phys: Dale Gilliland MD Discharge: Date of : 36 Report #: [id number] THIS REPORT FOR: //name// CC: Micheal Gilliland DATE OF SERVICE: 02/08/2018 Followup visit for chronic bilateral intermittent sacroiliac joint pain status post lumbar surgery with extensive fusion. Post-laminectomy syndrome. The patient has had 7 lumbar surgeries. The patient is here today with her for treatment of recurring low back pain. We have been asked to provide sacroiliac joint injections, which we have done on several occasions providing temporary but substantial pain relief. She is here today hoping for another injection. Pain today is on the right. It is localized over the sacroiliac joint and radiates laterally into the buttock, but does not extend much further than midthigh. This is likely referred pain. She does not present with significant radiculopathy on the right. She does have radicular pain on the left. This is chronic and has been persistent for years. She has even gone as far as a spinal cord stimulator trial by Dr. Wilner Hernandez. Unfortunately, there was a complication in its placement and she was never able to establish therapy. She uses hydrocodone but sparingly. It is provided for her by Dr. Mazariegos. She is allowed 4 tablets a day, but only takes 1-2 because she says it does not work at all. She wondered about the use of morphine, which was helpful in the hospital. If we calculate morphine milligram equivalency doses at 10 mg of hydrocodone x 4 doses a day that comes to 40 MME. In lieu of that, I have suggested a trial of extended release morphine 15 mg b.i.d. She will use it carefully and cautiously. She is not under agreement with our clinic and I will discuss this by phone call with Dr. Mazariegos. Today, her pain intensity is high. She has 10/10. Pain is localized mostly as described above. She has osteoarthritis, however, in multiple joints and has had a previous joint replacement. She has lumbar spondylosis. She is limited to a wheelchair and is a fall risk. She is on a blood thinner Xarelto. She is not a candidate for epidural injection, but joint injections would be possible today. She is not on an opioid agreement with our clinic, but is receiving medications from Dr. Mazariegos. I will discuss my suggestion of morphine extended release to him. [address] [address] PAIN MANAGEMENT CONSULTATION Name: BRIELLE HALE Casey Room #: REG [facility] Pillo.#: [id number] Admission: 02/08/18 Attend Phys: Dale Gilliland MD Discharge: Date of : 36 Report #: [id number] PHYSICAL EXAMINATION: She is 5 feet 1 inch, 160 pounds with a BMI of 30.5. Her blood pressure 138/64, heart rate 68. She has localized tenderness over the sacroiliac joint with a positive Ryan and crossover pain. She has a large extensive scar to the midline with tenderness overlying the midline and laterally. She has positive straight leg raising bilaterally, but it is worse on the left following all the way down in the L5 distribution to the calf and ankle. IMPRESSION: 1. Post-laminectomy syndrome. Post 7 lumbar surgeries with fusion. 2. Sacroiliitis, bilateral. Today is on the right. In the past, it has been on the left. It is localized and consistent with her diagnosis of previous fusion of the lower lumbar region. 3. Lumbar radiculopathy involving the L5 distribution on the left, chronic. 4. Management of chronic pain with opioid medications. RECOMMENDATION: 1. Sacroiliac injection on the right under fluoroscopic guidance. 2. Short trial of 2 weeks of MS Contin 15 mg b.i.d. in lieu of hydrocodone, which she is currently not utilizing due to lack of efficacy. 3. Followup phone call with Dr. Mazariegos. PROCEDURE NOTE: After informed consent, the patient was taken to fluoroscopic suite, placed prone, skin prepped with ChloraPrep. Skin anesthetized over the right sacroiliac joint. A 25-gauge needle was gently advanced in the posterior inferior capsule. After negative aspiration, I injected 0.25 mL of Omnipaque. The needle repositioned on 2 occasions until an arthrogram was obtained. It was then injected 40 mg of triamcinolone along with 0.5% bupivacaine. She tolerated the procedure well and was observed in short time in recovery room and discharged with a followup visit scheduled as needed. Dr. Mazariegos will continue to prescribe her medication as long as she is willing to make the transition if the morphine is helpful. If not, I will be required to see her back in our clinic for medication management under terms of written agreement. I would prefer her to stay with her primary care physician as he has longstanding knowledge of her condition. By: [id number] Dale Gilliland MD /nt
[2018-02-08 10:14] VITALS: BP 138/64
== END | disposition home or self-care (01) ==
LOC: PAIN 07:06
DX: M53.3 Sacrococcygeal disorders, not elsewhere classified (principal); G89.29 Other chronic pain; M54.16 Radiculopathy, lumbar region; M96.1 Postlaminectomy syndrome, not elsewhere classified; M19.90 Unspecified osteoarthritis, unspecified site; Z79.899 Other long term (current) drug therapy; Z98.890 Other specified postprocedural states; Z79.01 Long term (current) use of anticoagulants; Z88.8 Allergy status to other drugs, medicaments and biological substances

== ENCOUNTER → 2018-02-22 | Outpatient (CLI) | payer OTHER, BC ==
[~2018-02-22] VITALS: Ht 154.9 cm; Wt 72.8 kg
[~2018-02-22] MED LIST changes: +OXYCODONE-ACET1 EAC2 PO
--- NOTE | ~2018-02-22 | HPC ---
[facility] [place] [address] PAIN MANAGEMENT CONSULTATION Name: BRIELLE HALE Room #: REG [facility]#: [id number] Admission: 02/22/18 Attend Phys: Dale Gilliland MD Discharge: Date of : 36 Report #: [id number] THIS REPORT FOR: //name// CC: Micheal Gilliland DATE OF SERVICE: 02/22/2018 Followup visit for post-laminectomy syndrome and chronic intractable pain. The patient returns to pain clinic today with her . I reviewed my recommendations from previous visit. I did speak with Dr. Mazariegos's office. We had transitioned her to morphine, which she had found to be helpful in the hospital. Unfortunately, the extended release morphine taken at a modest dose of 15 mg twice a day was unsuccessful in alleviating pain, but also caused excessive sedation. We decided to move away from morphine. The patient has also seen Dr. Mazariegos in the interim and he suggested possibly oxycodone. They are separate molecules although both are opioids. I am open to trying oxycodone starting at a modest dose and then increasing the dose as tolerated. Hopefully, she will respond more favorably to it with fewer side effects. She continues to complain of pain with significant interference in many activities of daily living including walking, mood and general activity. Her pain intensity today is 9/10. She describes it as an aching, burning, constant sensation in her low back and radiating through her pelvis and left leg. PHYSICAL EXAMINATION: She is alert and oriented, without any signs of overmedication. Blood pressure 148/96, heart rate 65, respirations 18. BMI is 30.3. She moves from sitting to standing position, walks with some unsteady gait. She may be a fall risk. She has tenderness and a scar across the lumbosacral segment. She has bilateral positive straight leg raising, worse on the left from the buttock to the calf and ankle in the L5 distribution. IMPRESSION: 1. Post-laminectomy syndrome with chronic intractable pain. 2. Bilateral sacroiliitis consistent with previous diagnosis of fusion. 3. Lumbar radiculopathy L5 on the left. 4. Management of high risk medication. She was given a trial of 1 month of oxycodone 10/325 one tablet 3 times a day or 45 morphine milligram equivalents. In morphine equivalence this is roughly a 50% increase over her previous medications. She can titrate her medicines and understands how to do that. We talked about safeguarding medications. I made it clear to the nurses and to her that if she is doing well on [address] [address] PAIN MANAGEMENT CONSULTATION Name: HALEBRIELLE Room #: REG [facility] Arvind#: [id number] Admission: 02/22/18 Attend Phys: Dale Gilliland MD Discharge: Date of : 36 Report #: [id number] this medication, I have seen her now twice in the last month, that I will provide her with two additional months of medication. She can pick those up at the front end [facility] [employer] so that they will not have to wait for the long time in our office for followup. They did make an appointment and if she is not getting along well with the medication, we have other options to discuss. By: [id number] Dale Gilliland MD /nt
[2018-02-22 09:02] VITALS: BP 146/96
== END ==
LOC: PAIN 06:09
DX: M54.16 Radiculopathy, lumbar region (principal); M46.1 Sacroiliitis, not elsewhere classified; G89.4 Chronic pain syndrome; Z79.891 Long term (current) use of opiate analgesic

== ENCOUNTER 2018-03-11 12:43 | Emergency (ER) | payer OTHER, BC ==
[~2018-03-11] VITALS: Ht 154.9 cm; Wt 72.6 kg
[2018-03-11] MEDS ORDERED: HYDROCODON-ACE1 EAC5 PO (13:16)
[2018-03-11 14:32] LABS: ABSOLUTE NEUTROPHILS 5.2 thou/uL (1.4-8.2); EOSINOPHILS 1.3 % (0.0-3.0); HEMOGLOBIN 13.2 gm/dL (12.0-15.0); LYMPHOCYTES 18.7 % (24.0-44.0); MCH 31.9 pg (26.0-34.0); MCHC 33.9 g/dL (28.0-37.0); MONOCYTES 8.2 % (1.0-8.0); PLATELET COUNT 180 thou/uL (150-400); POLYS 70.8 % (36.0-66.0); RBC 4.14 mil/uL (4.20-5.00); RDW 14.7 % (10.5-14.5); WBC 7.4 thou/uL (4.0-11.0)
[2018-03-11 14:41] LABS: CALCIUM 8.9 mg/dL (8.5-10.1); CREATININE 1.2 mg/dL (0.6-1.0); POTASSIUM 3.6 mmol/L (3.5-5.1)
[2018-03-11] MEDS ORDERED: NORCO 5-325 TA1 EACH PO (15:02)
[2018-03-11 15:24] VITALS: BP 136/74
== END 2018-03-11 15:29 | disposition home or self-care (01) ==
LOC: ER 12:43
PROVIDERS: Physician Assistant
DX: M25.551 Pain in right hip (principal); M54.5 Low back pain; Z96.612 Presence of left artificial shoulder joint; Z96.611 Presence of right artificial shoulder joint; Z90.49 Acquired absence of other specified parts of digestive tract; Z96.652 Presence of left artificial knee joint; Z88.1 Allergy status to other antibiotic agents; Z88.8 Allergy status to other drugs, medicaments and biological substances

== ENCOUNTER → 2018-03-22 | Outpatient (CLI) | payer OTHER, BC ==
[~2018-03-22] VITALS: Ht 154.9 cm; Wt 68.5 kg
[~2018-03-22] MED LIST changes: +HYDROCODON-ACE1 EAC5 PO
--- NOTE | ~2018-03-22 | HPC ---
[facility] [employer] [place] [address] PAIN MANAGEMENT CONSULTATION Name: BRIELLE HALE Room #: REG [facility].#: [id number] Admission: 03/22/18 Attend Phys: Dale Gilliland MD Discharge: Date of : 36 Report #: [id number] THIS REPORT FOR: //name// CC: Micheal Gilliland DATE OF SERVICE: 03/22/2018 Followup visit for chronic pain, post-laminectomy syndrome and osteoarthritis. The patient was in the clinic today for roughly 30 minutes with her . We spent a great deal of time discussing her pain generators, her medications previously used. Her most recent drug trial with morphine sulfate and future directions for management. She is an 83-year-old with multiple degenerative conditions. She has post-laminectomy syndrome with chronic pain in the lumbar spine. Pain emanates from facet joints with local mediation, some radiculopathy and she has bilateral sacroiliitis as well. In addition today, she spent quite a bit of time complaining about her left knee. This is yet another pain generator and is essentially a chronic post-arthroplasty pain syndrome. Given her multiple pain generators, we have been seeking a pain medication to provide some major relief. Today, we discussed trialing yet another new medicine. Her most recent trial with morphine was unsuccessful. Primarily due to side effect, she was unable to adjust the dose upwards. Her said that she was a bit like a zombie. She has also had nausea and constipation. She has had similar responses to hydrocodone and oxycodone. PHYSICAL EXAMINATION: Today, her affect is depressed. PQRS shows a patient in a wheelchair with a BMI of 28.5 with a blood pressure 127/62, heart rate 97. She reports her pain intensity 10/10, but she talks in a calm voice and does not appear in intense discomfort during our discussion. She is a fall risk, but has not fallen in the last 3 months. She remains on a blood thinner. She has completed an opioid risk tool and is at low risk for addiction. Her functional assessment score is 50/70 suggesting impacting nearly all aspects of her life by her chronic pain. She has tenderness across her low back. She has tenderness over sacroiliac joints. She has difficulty with standing. She walks with slow measured antalgic gait. She has positive straight leg raising, worse on the left than the right. She has tenderness and swelling around the left knee. There is a [facility] [address] [place] [address] PAIN MANAGEMENT CONSULTATION Name: BRIELLE HALE Room #: REG [facility]#: [id number] Admission: 03/22/18 Attend Phys: Dale Gilliland MD Discharge: Date of : 36 Report #: [id number] scar from previous knee replacement. Flexion and extension of the knee, both reproduce pain. Sensation is diminished bilaterally in lower extremities and is symmetrical distribution. IMPRESSION: 1. Post-laminectomy syndrome with intractable pain. 2. Lumbar radiculopathy, worse on the left following an L5 distribution. 3. Bilateral sacroiliac joint pain. 4. Osteoarthritis with persistent left knee pain status post arthroplasty. 5. Management of high risk medications with ongoing trials. PLAN: 1. I discussed with her the possibility of a genicular nerve radiofrequency. This has been helpful in certain cases. The genicular nerves must be treated first with diagnostic injections on a couple of occasions and if she sees good response to the diagnostic injections, then we can proceed with radiofrequency ablations. We discussed this as a temporizing procedure, but has been reported in the literature to be helpful for some patients. 2. We will try a new trial of medication. I have recommended a Butrans patch 5 mcg. She will use that for 1 week. If there is no response and no side effects, then I would consider proceeding with a dose of 10 mcg. Instructions were provided written and verbal Many questions were asked and answered. [id number] time in counseling exam 30 minutes. By: [id number] Dale Gilliland MD /nt
[2018-03-22 09:33] VITALS: BP 27/62
== END ==
LOC: PAIN 07:14
DX: M54.16 Radiculopathy, lumbar region (principal); M17.12 Unilateral primary osteoarthritis, left knee; G89.29 Other chronic pain; M53.3 Sacrococcygeal disorders, not elsewhere classified; Z79.899 Other long term (current) drug therapy

== ENCOUNTER → 2018-05-03 | Outpatient (CLI) | payer OTHER, BC ==
[~2018-05-03] VITALS: Ht 154.9 cm; Wt 69.7 kg
[~2018-05-03] MED LIST changes: +ANTIVERT25 MG PO; +BUTRANS1 EAC1 PO; +BUTRANS1 EAC1 TRANSDERM; +METHADONE HCL5 MG PO; +VITAMIN D5000 UNIT PO
--- NOTE | ~2018-05-03 | HPC ---
[facility] [place] [address] PAIN MANAGEMENT CONSULTATION Name: [facility]RIELLE HALE [id number] Admission: 05/03/18 Attend Phys: Dale Gilliland MD Discharge: Date of : 36 Report #: [id number] THIS REPORT FOR: //name// CC: GLENNY Gilliland DATE OF SERVICE: 05/03/2018 Followup visit for chronic intractable back pain, status post multiple lumbar surgeries including fusion and left leg pain with radiation, lumbar radiculopathy. The patient was in the clinic today for an extended visit. I spent roughly 30 minutes discussing options with the patient and her . We reviewed these options over and over during her visit. None of them is seemingly satisfactory for the patient's . The patient has severe pain that she scores as a 10/10 and has at each visit. Her pain is in her low back and it radiates into both legs. The distribution of the pain is L5, L4 and it is worse by standing, walking and bending. She is very sedentary. She describes it as a constant pain, throbbing in nature. Nothing seems to have helped. The lack of response to treatments has led to some frustration. She was in the Emergency Room just recently due to poor pain control. I have reviewed the records available from our clinic, and she has been a patient here on and off dating back to 2010. She has had multiple trials of pain medications including nonsteroidal anti-inflammatory drugs, several anti-seizure medications for neuropathic pain even including gabapentin, Lyrica and Trileptal. She has been on a variety of opioid medications including morphine, oxycodone, hydrocodone, methadone, fentanyl and buprenorphine patches. All seem to be of little benefit and have not been titrated generally due to side effects. Her feels that she is less alert on these medications and they may have exacerbated her depression. She is currently off of all opioids other than hydrocodone 5/325, which provides a modest amount of pain relief. The patient has discontinued her methadone, last prescribed on 04/16/2018 as a trial and her buprenorphine patches and her oxycodone. No other pain medications are available beyond the hydrocodone at this time. I reviewed options and 5 were given for treatment including continuing with medication management, perhaps looking at other opioid medications that are multireceptor in nature such as tapentadol or Nucynta. We could also re-explore the anti-seizure medication classification for the neuropathic pain in her legs. We should be cautious about nonsteroidal anti-inflammatory drugs due to her use of a blood thinner and the potential for catastrophic gastrointestinal bleeding, [address] [address] PAIN MANAGEMENT CONSULTATION Name: BRIELLE HALE Room #: REG [facility] Christel.#: [id number] Admission: 05/03/18 Attend Phys: Dale Gilliland MD Discharge: Date of : 36 Report #: [id number] which has been reported. I have offered an epidural steroid injection would prefer to approach this using a bilateral transforaminal approach due to her previous surgery. An alternative would be an intralaminar midline approach above the level of her surgery. Risks and benefits of these injections and a 50% likelihood that it might provide some relief was provided as my opinion. The third option would be to reevaluate the spinal cord stimulator and the fourth, an intrathecal pumps. Both of these options have been discussed in the past and were satisfactory to the patient's . Final option would be to send her back to surgeon. She is not an ideal surgical candidate at the age of 83. PQRS assessment shows osteoarthritis throughout the body and multiple joints with many complaints, hips, knees, shoulders. She has a BMI of 29 and is a fall risk. She is on the blood thinner, Xarelto and cannot have an epidural today until she has been off for 3 days. She has no history of hypertension. She is on an opioid agreement. She has completed an opioid risk tool and is at low risk for addiction. She denies alcohol and tobacco. In conclusion, the physical examination shows that the patient is pleasant and conversant. She is a little slow, but I would not say that she is confused. She is depressed. She has tenderness across her low back. She has bilateral straight leg raising discomfort into her legs. She has generalized weakness and bears weight with antalgic features. Sensation is diminished bilaterally in the lower extremities. IMPRESSION: Chronic intractable low back pain, post-laminectomy syndrome. She is status post multiple surgeries with radiculopathy. PLAN: Return for bilateral transforaminal epidural injection. Extended visit. By: [id number] Dale Gilliland MD /nt
[2018-05-03 13:37] VITALS: BP 141/57
== END ==
LOC: PAIN 04-30 06:33
DX: M54.5 Low back pain (principal); M96.1 Postlaminectomy syndrome, not elsewhere classified; G89.4 Chronic pain syndrome

== ENCOUNTER → 2018-05-07 | Outpatient (CLI) | payer OTHER, BC ==
[~2018-05-07] VITALS: Ht 154.9 cm; Wt 69.9 kg
--- NOTE | ~2018-05-07 | HPC ---
[facility] [place] [address] PAIN MANAGEMENT CONSULTATION Name: ALEXIARBIELLE Casey Room #: REG [facility] Pillo.#: [id number] Admission: 05/07/18 Attend Phys: Dale Gilliland MD Discharge: Date of : 36 Report #: [id number] THIS REPORT FOR: //name// CC: Micheal Gilliland DATE OF SERVICE: 05/07/2018 Followup visit for right L1 through L4 lumbar radiculopathy. The patient is here today for transforaminal epidural injection. I have elected to perform a 2-level transforaminal injection above the level of her fusion at L1-L2 and T12-L1. Potential benefits and risks of this procedure were reviewed in detail. She is anxious to proceed. IMPRESSION: 1. Post-laminectomy syndrome with fusion. 2. Lumbar radiculopathy, left L1 through 4. PROCEDURE: Skin was prepped with ChloraPrep. Skin anesthetized, 22-gauge needles were advanced into the neural foramen at L1-T12 and L1-L2. After negative aspiration, I injected each needle with 0.25 mL of Omnipaque in order to demonstrate an excellent epidurogram at each level. Then followed at each level by 2 mL of 0.5% lidocaine mixed with 40 mg of triamcinolone for a total of 80 mg. She tolerated the procedure well. She was observed in recovery room for about 30 minutes and discharged. At each visit I spent quite a bit of time in discussion with the patient and her who has multiple questions. Today, we reviewed once again in detail spinal cord stimulation. Total time in consultation in addition to the injection was about 20 minutes. By: [id number] Dale Gilliland MD /nt
[2018-05-07 08:57] VITALS: BP 114/55
== END | disposition home or self-care (01) ==
LOC: PAIN 07:33
DX: M54.16 Radiculopathy, lumbar region (principal); M96.1 Postlaminectomy syndrome, not elsewhere classified; I48.91 Unspecified atrial fibrillation; M06.9 Rheumatoid arthritis, unspecified; Z79.01 Long term (current) use of anticoagulants; Z98.890 Other specified postprocedural states; Z88.8 Allergy status to other drugs, medicaments and biological substances; Z79.899 Other long term (current) drug therapy

== ENCOUNTER → 2018-05-22 | Outpatient (CLI) | payer OTHER, BC | LOC: RAD 01:26 | DX: Z12.31 Encounter for screening mammogram for malignant neoplasm of breast (principal) ==

== ENCOUNTER 2018-05-31 16:08 | Emergency (ER) | payer OTHER, BC ==
[~2018-05-31] VITALS: Ht 154.9 cm; Wt 69.0 kg
[2018-05-31 18:14] VITALS: BP 161/89
== END 2018-06-01 08:13 | disposition home or self-care (01) ==
LOC: ER 16:08
DX: S02.2XXA Fracture of nasal bones, initial encounter for closed fracture (principal); S00.33XA Contusion of nose, initial encounter; S09.90XA Unspecified injury of head, initial encounter; I48.91 Unspecified atrial fibrillation; M06.9 Rheumatoid arthritis, unspecified; Z96.643 Presence of artificial hip joint, bilateral; Z96.612 Presence of left artificial shoulder joint; Z96.611 Presence of right artificial shoulder joint; Z96.652 Presence of left artificial knee joint; Z88.1 Allergy status to other antibiotic agents; Z88.5 Allergy status to narcotic agent; W18.09XA Striking against other object with subsequent fall, initial encounter; Y93.89 Activity, other specified; Y92.89 Other specified places as the place of occurrence of the external cause; Y99.8 Other external cause status

== ENCOUNTER 2018-06-08 20:47 | Inpatient (IN) | payer OTHER, BC ==
[~2018-06-08] VITALS: Ht 154.9 cm; Wt 66.5 kg
--- NOTE | ~2018-06-08 | EKG ---
[address] [place] [address] ELECTROCARDIOGRAM REPORT Name: HALEBRIELLE SEAMAN Casey Room #: 458-P ADM IN M.R.#: [id number] Admission: 06/08/18 Attend Phys: Monroe Samuel MD Discharge: Date of : 36 Report #: [id number] THIS REPORT FOR: //name// [facility] ED Test Date: 2018-06-08 Test Time: 22:24:09 Pat Name: BRIELLE HALE Department: Room: 458 Gender: F Supportive Employment Case Manager: LALITHA : 1935 Requested By: Jb Castro Order Number: [id number] MD: Samuel Cuevas Measurements Intervals Jordan Rate: 72 P: 9 CT: 168 QRS: -63 QRSD: 103 T: 24 QT: 403 QTc: 442 Interpretive Statements Sinus rhythm Left anterior fascicular block Abnormal R-wave progression, late transition Left ventricular hypertrophy Compared to ECG 05/02/2018 04:55:23 No significant changes Electronically Signed On 06-09-2018 11:06:23 CDT by Samuel Cuevas [email or web address] <ELECTRONICALLY SIGNED> By: Samuel Cuevas MD 06/09/18 1106 23 23 Samuel Cuevas MD /EPI
--- NOTE | ~2018-06-08 | O ---
[facility] [place] [address] OPERATIVE REPORT Name: BRIELLE HALE Room #: 462-P ADM IN M.R.#: [id number] Admission: 06/08/18 Attend Phys: Monroe Samuel MD Discharge: Date of : 36 Report #: [id number] THIS REPORT FOR: //name// CC: Micheal Samuel DATE OF SERVICE: 06/11/2018 PREOPERATIVE DIAGNOSES: Fracture left distal femur, periprosthetic fracture between previous left total knee replacement and left long stem total hip replacement. POSTOPERATIVE DIAGNOSES: Fracture left distal femur, periprosthetic fracture between previous left total knee replacement and left long stem total hip replacement. PROCEDURE: Open reduction and internal fixation of left distal femur fracture using lateral contoured locking fixation plate and bone graft. SURGEON: Kwame Santos MD INDICATIONS: This frail 83-year-old female has severe degenerative and inflammatory osteoarthritis and has had problems with multiple joints. She has a previous long stem, left total hip arthroplasty and previous left total knee arthroplasty. She also has a history of weakness and chronic pain as well as a left foot drop. She has had multiple falls as a result of these preexisting problems. She fell again injuring the left distal femur resulting in a supracondylar fracture. She has multiple other facial contusions, but no other major fractures. We discussed treatment options and she has elected to go ahead with surgical repair using a lateral fixation contoured plate. DESCRIPTION OF PROCEDURE: The patient was taken to the operating room where she was placed under general anesthesia. Prophylactic intravenous antibiotics were administered. The left lower extremity was meticulously prepped and draped. No tourniquet was employed given the location of the incision and the size of her leg and lateral skin incision was made and carried through fascia, extending down to bone. The comminuted distal femur fracture was identified and reduced to a near anatomic position. It was held manually initially and then a [employer] lateral distal femoral locking plate was contoured appropriately and applied. I was able to get 5 long screws in the distal aspect and 2 shorter unicortical screws in the most distal holes. More proximally, I was able to get 5 screws below the tip of the long stem femoral component. In addition, one cerclage cable wire was placed at the upper aspect of the plate overlapping the distal portion of the intramedullary zach to avoid an excessive stress riser at that level. A C-arm was used to visualize the fracture alignment during this procedure and very satisfactory alignment was confirmed. The femoral component [address] [address] OPERATIVE REPORT Name: BRIELLE HALE Room #: 462-P [facility] IN [facility].#: [id number] Admission: 06/08/18 Attend Phys: Monroe Samuel MD Discharge: Date of : 36 Report #: [id number] of the total knee seems to be stable without evidence of loosening. Overall, alignment and stability of the total knee replacement also seems to be satisfactory. The wound was copiously irrigated. Good hemostasis was confirmed. A good deal of bone allograft was then applied utilizing 30 mL of cancellous bone chips and 5 mL of demineralized bone putty. This was packed both medially and posteriorly around the fracture site. The fascia was then closed with multiple #1 Vicryl sutures. The adipose tissues and subcutaneous tissues were closed with 0 Monocryl. The skin was closed with skin dat. A sterile dressing was applied and a long leg immobilizer placed to help support the distal femur fracture. The patient was then awakened and returned to the recovery room in good condition. <ELECTRONICALLY SIGNED> By: Kwame Santos MD 06/12/18 0734 [id number] Kwame Santos MD /nt
--- NOTE | ~2018-06-08 | HC ---
[facility] [place] [address] [place] [address] CONSULTATION Name: BRIELLE HALE Room #: 462-P ADM IN M.R.#: [id number] Admission: 06/08/18 Attend Phys: Monroe Samuel MD Discharge: Date of : 37 Report #: [id number] THIS REPORT FOR: //name// CC: Micheal Samuel DATE OF SERVICE: 06/09/2018 REASON FOR CONSULTATION: Left distal femur periprosthetic fracture. HISTORY OF PRESENT ILLNESS: The patient is an 83-year-old female who fell yesterday and sustained a left distal periprosthetic femur fracture above a total knee arthroplasty and below a total hip arthroplasty with a long stem. She has been admitted for definitive treatment. PAST MEDICAL HISTORY: Accidental fall, atrial fibrillation with rapid ventricular response, back pain, bronchitis, chronic hip pain, bilateral dizziness, facial contusion, vertigo, rheumatoid arthritis. ALLERGIES: CIPRO AND TRAMADOL. PAST SURGICAL HISTORY: Includes bilateral shoulder arthroplasty, bilateral hip arthroplasty, left total knee arthroplasty, cervical fusion. SOCIAL HISTORY: She lives at home with her . She is a community ambulator. PHYSICAL EXAMINATION: GENERAL: Well-developed, well-nourished female, in no acute distress. She is alert and oriented, pleasant, cooperative with exam. EXTREMITIES: Examination of left lower extremity shows her to have a knee immobilizer in place. Her skin is intact. She is neurologically intact distally with full sensation to light touch and a 1+ posterior tibial pulse. She is tender to palpation about her distal femur. X-RAY EXAMINATION: AP and lateral of the left femur shows her to have a transverse oblique distal third femur fracture above a total knee arthroplasty and below a long-stem total hip arthroplasty. ASSESSMENT: Left distal femur periprosthetic femur fracture. PLAN: Diagnosis and treatment options were discussed today with the patient and her . Our recommendation is for treatment with a lateral plate and screws as well as cerclage cables to span the distance between the hip and knee arthroplasties. She is adamant that I do not do her surgery and is requesting one of my partners to do her surgery. I have spoken with Dr. Santos and he is [facility] [address] [place] [address] CONSULTATION Name: BRIELLE HALE Casey Room #: 462-P [facility] IN M.R.#: [id number] Admission: 06/08/18 Attend Phys: Monroe Samuel MD Discharge: Date of : 37 Report #: [id number] willing and able to do her surgery Monday morning. We will put her on the operating room schedule for Monday a.m. probably around 9:00 or so. I discussed with them the postoperative course as well as likelihood of nonweightbearing on the left lower extremity for at least 3 months if not longer. They are understanding and wish to proceed this with Dr. Santos performing the surgery. Thank you for allowing us to participate in care of the patient. <ELECTRONICALLY SIGNED> By: Geoff Milner MD 06/13/18 [id number] Geoff Milner MD /nt
[2018-06-08 20:48] VITALS: BP 136/99
[2018-06-08] MEDS ORDERED: KLOR-CON 1010 MEQ PO (21:01)
[2018-06-08 21:14] LABS: ABSOLUTE NEUTROPHILS 5.5 thou/uL (1.4-8.2); BASOPHILS 0.6 % (0.0-2.0); EOSINOPHILS 0.8 % (0.0-3.0); HEMATOCRIT 39.7 % (37.0-47.0); HEMOGLOBIN 13.5 gm/dL (12.0-15.0); LYMPHOCYTES 29.9 % (24.0-44.0); MCHC 34.1 g/dL (28.0-37.0); MCV 93.7 fL (80.0-100.0); MONOCYTES 10.3 % (1.0-8.0); PLATELET COUNT 208 thou/uL (150-400); POLYS 58.4 % (36.0-66.0); RBC 4.23 mil/uL (4.20-5.00); RDW 13.9 % (10.5-14.5); WBC 9.5 thou/uL (4.0-11.0)
[2018-06-08 21:20] LABS: CREATININE 0.8 mg/dL (0.6-1.0)
[2018-06-08 21:36] LABS: APTT 26.7 Seconds (24.5-32.8); INR 1.1; PROTIME 11.4 Seconds (9.3-11.4)
[2018-06-08 23:09] VITALS: BP 150/91
[2018-06-08 23:31] VITALS: BP 143/66
[2018-06-08 23:50] VITALS: BP 184/68
[2018-06-09 04:34] VITALS: BP 150/64
[2018-06-09 08:00] VITALS: BP 139/54
[2018-06-09 10:54] LABS: URINE BILIRUBIN NEGATIVE (Negative); URINE BLOOD 1+ (Negative); URINE CLARITY CLEAR; URINE COLOR YELLOW; URINE GLUCOSE-RANDOM* NEGATIVE (Negative); URINE KETONES NEGATIVE (Negative); URINE LEUKOCYTES-REFLEX NEGATIVE (Negative); URINE NITRITE-REFLEX NEGATIVE (Negative); URINE PROTEIN (DIPSTICK) NEGATIVE (Negative); URINE UROBILINOGEN 0.2 E.U./dl (0.2-1.0)
[2018-06-09 11:01] LABS: BACTERIA-REFLEX 1-9 Few /HPF (None Seen); CASTS None Seen /LPF (None Seen); CRYSTALS None Seen /LPF (None Seen); SQUAMOUS 0-3 Few /LPF (0-3); URINE RBC 3-10 Few /HPF (0-2); URINE WBC-REFLEX 0-5 Rare /HPF (0-5)
[2018-06-09 15:00] VITALS: BP 130/51
[2018-06-09 19:32] VITALS: BP 151/68
[2018-06-10 03:28] VITALS: BP 148/70
[2018-06-10 07:15] VITALS: BP 117/50
[2018-06-10 14:48] VITALS: BP 108/72
[2018-06-10 19:26] VITALS: BP 177/82
[2018-06-11] VITALS (9 sets, daily range): BP systolic 109–147; BP diastolic 54–81
[2018-06-11 09:04] LABS: HEMATOCRIT 31.7 % (37.0-47.0); MCH 31.3 pg (26.0-34.0); MCHC 33.2 g/dL (28.0-37.0); MCV 94.4 fL (80.0-100.0); RBC 3.36 mil/uL (4.20-5.00); RDW 13.7 % (10.5-14.5); WBC 9.6 thou/uL (4.0-11.0)
[2018-06-11 09:08] LABS: CALCIUM 8.2 mg/dL (8.5-10.1); CREATININE 0.7 mg/dL (0.6-1.0); MAGNESIUM 1.9 mg/dL (1.8-2.4); POTASSIUM 3.6 mmol/L (3.5-5.1)
[2018-06-11 09:16] LABS: HEMOGLOBIN 10.5 gm/dL (12.0-15.0)
[2018-06-12 05:58] VITALS: BP 169/69
[2018-06-12 06:26] LABS: POTASSIUM 3.9 mmol/L (3.5-5.1)
[2018-06-12 06:31] LABS: HEMATOCRIT 26.6 % (37.0-47.0); HEMOGLOBIN 8.9 gm/dL (12.0-15.0)
[2018-06-12 08:00] VITALS: BP 145/72
[2018-06-12 13:40] VITALS: BP 111/76
[2018-06-12 19:20] VITALS: BP 116/63
[2018-06-13 03:08] VITALS: BP 184/81
[2018-06-13 07:46] VITALS: BP 143/61
[2018-06-13] MEDS ORDERED: NORCO 7.5-3251 EACH PO (13:29)
[2018-06-13] MEDS ORDERED: MIRALAX17 GM PO (13:29)
[2018-06-13 13:53] VITALS: BP 99/52
[2018-06-13 18:58] VITALS: BP 125/63
[2018-06-14 03:53] VITALS: BP 152/82
[2018-06-14 07:17] VITALS: BP 170/78
[2018-06-14 08:08] VITALS: BP 170/78
== END 2018-06-14 13:30 | DRG 482 ==
LOC: ER 20:47 → 4W 22:50 → EROBS 22:50 → 4W 23:30
PROVIDERS: Emergency Medicine; Internal Medicine; Nurse Practitioner Acute Care; Orthopaedic Surgery
PROC: 2W3RX1Z Immobilization of Left Lower Leg using Splint (ICD-10-PCS; principal; 2018-06-08)
PROC: 0QSC04Z Reposition Left Lower Femur with Internal Fixation Device, Open Approach (ICD-10-PCS; 2018-06-11)
DX: M97.12XA Periprosthetic fracture around internal prosthetic left knee joint, initial encounter (principal); R29.6 Repeated falls; Z96.643 Presence of artificial hip joint, bilateral; Z96.612 Presence of left artificial shoulder joint; Z96.611 Presence of right artificial shoulder joint; Z96.652 Presence of left artificial knee joint; G89.29 Other chronic pain; M25.559 Pain in unspecified hip; M06.9 Rheumatoid arthritis, unspecified; I48.0 Paroxysmal atrial fibrillation; S00.83XA Contusion of other part of head, initial encounter; E11.9 Type 2 diabetes mellitus without complications; F32.9 Major depressive disorder, single episode, unspecified; M62.84 Sarcopenia; D64.9 Anemia, unspecified; W01.0XXA Fall on same level from slipping, tripping and stumbling without subsequent striking against object, initial encounter; Y93.89 Activity, other specified; Z90.49 Acquired absence of other specified parts of digestive tract; Z88.1 Allergy status to other antibiotic agents; Z88.8 Allergy status to other drugs, medicaments and biological substances; Z82.49 Family history of ischemic heart disease and other diseases of the circulatory system; Z79.52 Long term (current) use of systemic steroids; Z79.891 Long term (current) use of opiate analgesic; Z79.01 Long term (current) use of anticoagulants; Z47.89 Encounter for other orthopedic aftercare; Y92.89 Other specified places as the place of occurrence of the external cause; Y99.8 Other external cause status
CPT/HCPCS: 10045; 50010; 50101; 50386; 51014; 51412; 51439; 53329; 55430; 56525; 56526; 57091; 62110; 62900; 70005

== ENCOUNTER → 2018-09-19 | Outpatient (CLI) | payer OTHER, BC ==
[~2018-09-19] MED LIST changes: +KLOR-CON 1010 MEQ PO; +NORCO 7.5-3251 EACH PO
== END ==
LOC: HYPER 09-12 09:27
DX: T81.31XD Disruption of external operation (surgical) wound, not elsewhere classified, subsequent encounter (principal); I48.91 Unspecified atrial fibrillation; G89.29 Other chronic pain; K21.9 Gastro-esophageal reflux disease without esophagitis; M81.0 Age-related osteoporosis without current pathological fracture; M45.9 Ankylosing spondylitis of unspecified sites in spine; M06.9 Rheumatoid arthritis, unspecified; F03.90 Unspecified dementia, unspecified severity, without behavioral disturbance, psychotic disturbance, mood disturbance, and anxiety; F32.9 Major depressive disorder, single episode, unspecified; Z79.01 Long term (current) use of anticoagulants; Z79.84 Long term (current) use of oral hypoglycemic drugs; Z79.52 Long term (current) use of systemic steroids; Z96.611 Presence of right artificial shoulder joint; Z96.612 Presence of left artificial shoulder joint; Z96.643 Presence of artificial hip joint, bilateral; Z96.652 Presence of left artificial knee joint; Z98.41 Cataract extraction status, right eye; Z98.42 Cataract extraction status, left eye; Z90.710 Acquired absence of both cervix and uterus; Y83.8 Other surgical procedures as the cause of abnormal reaction of the patient, or of later complication, without mention of misadventure at the time of the procedure

== ENCOUNTER → 2018-10-03 | Outpatient (CLI) | payer OTHER, BC | LOC: HYPER 07:19 | DX: T81.31XD Disruption of external operation (surgical) wound, not elsewhere classified, subsequent encounter (principal); G89.29 Other chronic pain; I48.91 Unspecified atrial fibrillation; K21.9 Gastro-esophageal reflux disease without esophagitis; M06.9 Rheumatoid arthritis, unspecified; M81.0 Age-related osteoporosis without current pathological fracture; M45.9 Ankylosing spondylitis of unspecified sites in spine; F03.90 Unspecified dementia, unspecified severity, without behavioral disturbance, psychotic disturbance, mood disturbance, and anxiety; F32.9 Major depressive disorder, single episode, unspecified; Z79.01 Long term (current) use of anticoagulants; Z79.84 Long term (current) use of oral hypoglycemic drugs; Z79.52 Long term (current) use of systemic steroids; Z96.611 Presence of right artificial shoulder joint; Z96.612 Presence of left artificial shoulder joint; Z96.643 Presence of artificial hip joint, bilateral; Z96.652 Presence of left artificial knee joint; Z98.41 Cataract extraction status, right eye; Z98.42 Cataract extraction status, left eye; Z90.710 Acquired absence of both cervix and uterus; Y83.8 Other surgical procedures as the cause of abnormal reaction of the patient, or of later complication, without mention of misadventure at the time of the procedure ==

== ENCOUNTER → 2018-10-08 | Outpatient (CLI) | payer OTHER, BC | LOC: RAD 14:52 | DX: J84.9 Interstitial pulmonary disease, unspecified (principal); J90 Pleural effusion, not elsewhere classified; Z88.8 Allergy status to other drugs, medicaments and biological substances; Z96.611 Presence of right artificial shoulder joint; Z96.612 Presence of left artificial shoulder joint ==

== ENCOUNTER → 2018-12-10 | Outpatient (CLI) | payer OTHER, BC ==
[~2018-12-10] VITALS: Ht 154.9 cm; Wt 64.2 kg
--- NOTE | ~2018-12-10 | HPC ---
[facility] [address] [address] PAIN MANAGEMENT CONSULTATION Name: BRIELLE HALE Room #: REG [facility].#: [id number] Admission: 12/10/18 ������������������ Attend Phys: Dale Gilliland MD Discharge: ������������������ Date of : 37 Report #: [id number] THIS REPORT FOR: //name// CC: GLENNY Gilliland CHIEF COMPLAINT: Chronic low back pain with radiculopathy and left knee pain status post left total knee replacement. The patient is here today for chronic pain. We currently provide for her occasional injection treatments, but are not providing medications. She complains today mostly of pain in the knee. She describes it as a sharp, aching, tender, pain 10/10. It is worse with walking and standing. She has difficulty doing both. She has tried at this point heat and ice. She has hydrocodone on her list of medications, but I do not write it for. Dr. Chaz Montes her primary care physician provides all of her medications for her. This includes Xarelto, prednisone, sertraline, and metoprolol for hypertension. She is a fall risk. She has also fallen in the last 3 months. We discussed strategies to try and remain upright. She has completed an Opioid risk tool to our clinic, which is a score of 1, there is a low risk for maintaining her pain control with opioids. She denies use of tobacco and alcohol. PHYSICAL EXAMINATION: GENERAL: She is a pleasant female, 5 feet, 141 pounds, BMI of 26.8. VITAL SIGNS: Her blood pressure 141/70, heart rate 62, respirations 16, O2 sat 100%. Examination of the left knee reveals tenderness throughout. The joint has good range of motion. She has pain in the subpatellar region. IMPRESSION: 1. Chronic low back pain, post-laminectomy syndrome with fusion. 2. Painful left knee, status post arthroplasty. 3. Management of high risk medications through Dr. Chaz Montes's office. RECOMMENDATIONS: After some discussion today, we decided to perform an injection of the left knee around the genicular nerves. This may lead to radiofrequency if there is a good response. We discussed treatments currently available for treatment of pain about the knee. PROCEDURE: Left knee injection. She was taken to fluoroscopic suite. She was placed supine. Skin was prepped with ChloraPrep and anesthetized overlying the tibia. I then used a 25-gauge 2-1/5 needle to inject along the most tender aspect of the knee in the inferior component [place] [address] PAIN MANAGEMENT CONSULTATION Name: BRIELLE HALE Room #: REG [facility].#: [id number] Admission: 12/10/18 ������������������ Attend Phys: Dale Gilliland MD Discharge: ������������������ Date of : 37 Report #: [id number] medial tibia. Needle was advanced until it slipped off just posterior as well. I injected a total of 8 mL of 0.5% bupivacaine along with 40 mg of triamcinolone. She tolerated the procedure well. Pain was reduced by half in recovery room. We will hope for a long duration of response and see her back in the pain clinic as needed. ��������������������������������������������� ���������������������������������������� By: ��������������������������������������������� [id number] Dale Gilliland MD /nt
[2018-12-10 10:57] VITALS: BP 141/70
--- NOTE | 2018-12-10 11:14 | NUR ---
Pain Clinic Assessment: 1. History of Osteoarthritis: EVERYWHERE History of Rheumatoid Arthritis: EVERYWHERE 2. Height: 5 ft. 1 in. 154.9 cm. Weight: 141.6 lb. oz. 64.229 kg. Patient's BMI: 26.8 3. Vital Signs: BP: 141/70 Pulse: 62 Resp: 16 Temp: 02 Sat: 100 ECG Mon: 4. Pain Intensity: 10 5. Fall Risk: Dizziness: Y Needs help standing or walking: Y Fallen in the last 3 months: Y Fall risk comments: 6. Patient on Blood Thinner: XARELTO 7. History of Hypertension: N 8. Opioid Therapy greater than 6 weeks: Y Opiate Contract Signed: 9. Risk Assessment Tool Provided: 1-LOW RISK 10. Functional Assessment Tool: 50/70 11. Recreational Drug Use: Never Drug Type: Tobacco Use: Never Smoker Tobacco Type: Amount or Packs/day: How Many Years: Alcohol Use: No Frequency: Quant:
== END | disposition home or self-care (01) ==
LOC: PAIN 06-21 04:28
DX: M25.562 Pain in left knee (principal); M54.16 Radiculopathy, lumbar region; G89.29 Other chronic pain; M96.1 Postlaminectomy syndrome, not elsewhere classified; I10 Essential (primary) hypertension; Z98.890 Other specified postprocedural states; Z79.01 Long term (current) use of anticoagulants; Z79.899 Other long term (current) drug therapy; Z88.8 Allergy status to other drugs, medicaments and biological substances

== ENCOUNTER → 2019-04-10 | Outpatient (CLI) | payer OTHER, BC | LOC: HYPER 10-31 09:02 | DX: L97.822 Non-pressure chronic ulcer of other part of left lower leg with fat layer exposed (principal); I48.91 Unspecified atrial fibrillation; M25.559 Pain in unspecified hip; M06.9 Rheumatoid arthritis, unspecified; G89.29 Other chronic pain; K21.9 Gastro-esophageal reflux disease without esophagitis; M81.0 Age-related osteoporosis without current pathological fracture; R63.1 Polydipsia; R29.6 Repeated falls; F03.90 Unspecified dementia, unspecified severity, without behavioral disturbance, psychotic disturbance, mood disturbance, and anxiety; F32.9 Major depressive disorder, single episode, unspecified; Z90.710 Acquired absence of both cervix and uterus; Z79.01 Long term (current) use of anticoagulants; Z91.81 History of falling ==

== ENCOUNTER → 2019-05-24 | Outpatient (CLI) | payer OTHER, BC | LOC: RAD 01:45 | DX: Z12.31 Encounter for screening mammogram for malignant neoplasm of breast (principal) ==

== ENCOUNTER → 2019-06-13 | Outpatient (CLI) | payer OTHER, BC ==
[~2019-06-13] VITALS: Ht 154.9 cm; Wt 65.1 kg
--- NOTE | ~2019-06-13 | HPC ---
[facility] [place] [address] PAIN MANAGEMENT CONSULTATION Name: BRIELLE HALE Room #: REG [facility].#: [id number] Admission: 06/13/19 Attend Phys: Dale Gilliland MD Discharge: Date of : 36 Report #: [id number] THIS REPORT FOR: //name// CC: Micheal Gilliland DATE OF SERVICE: 06/13/2019 The patient returns today for a 2-level transforaminal epidural injection above the level of her fusion. She reports that this is quite helpful in the past with his sustained improvement that a noted for months. The pain today is 8/10, worse with standing, bending and walking. Pain radiates from her low back into her right buttock and is described as sharp and tender. She has had multiple spinal surgeries including cervical posterior fusion and also a lumbar fusion. She has severe osteoarthritis with bilateral total hip replacements and bilateral shoulder replacements and diffuse osteoarthritis. She is under treatment for hypertension and is also on anticoagulant Xarelto. She is a fall risk. She denies use of tobacco or alcohol. Her opioids are prescribed for her by Micheal Mazariegos. I do not prescribe oral medications for her. PHYSICAL EXAMINATION: She is 5 feet 1 inch. BMI 27.1, blood pressure 155/81, heart rate 70, respirations 16, O2 sat is 100, pain intensity 8/10. She moves independently, but walks with an antalgic and weak gait. She is a fall risk. She has pain across her low back tenderness across her scar. Positive straight leg raising discomfort. IMPRESSION: 1. Chronic low back pain with radiculopathy, post-laminectomy and fusion. 2. Diffuse osteoarthritis. RECOMMENDATIONS: Two-level transforaminal epidural injection. I confirm that her last dose of Xarelto was on 06/08/2019 five days prior to the procedure. PROCEDURE: She was taken to fluoroscopic suite where she was placed prone, skin prepped with ChloraPrep. Skin anesthetized over the L3-L4 and L2-L3 neural foramen to the right. Using triplanar fluoroscopic views, I advanced needles into the neural foramen at each of the 2 levels. After negative aspiration, I injected 0.25 mL of Omnipaque demonstrating an epidurogram through each needle. This was then followed at each level by 2 mL of 0.5% lidocaine mixed with 40 mg of triamcinolone. She tolerated the procedure well. She was taken to recovery room for observation. There were no complications. Pain score was 0 at discharge. [address] [address] PAIN MANAGEMENT CONSULTATION Name: HALE,BRIELLE Casey Room #: REG [facility]#: [id number] Admission: 06/13/19 Attend Phys: Dale Gilliland MD Discharge: Date of : 36 Report #: [id number] Followup visit planned as needed. By: [id number] Dale Gilliland MD /inga
[2019-06-13 10:00] VITALS: BP 155/81
--- NOTE | 2019-06-13 10:17 | NUR ---
Pain Clinic Assessment: 1. History of Osteoarthritis: EVERYWHERE History of Rheumatoid Arthritis: EVERYWHERE 2. Height: 5 ft. 1 in. 154.9 cm. Weight: 143.6 lb. oz. 65.136 kg. Patient's BMI: 27.1 3. Vital Signs: BP: 155/81 Pulse: 70 Resp: 16 Temp: 02 Sat: 100 ECG Mon: 4. Pain Intensity: 8 5. Fall Risk: Dizziness: Y Needs help standing or walking: Y Fallen in the last 3 months: N Fall risk comments: 6. Patient on Blood Thinner: XARELTO 7. History of Hypertension: N 8. Opioid Therapy greater than 6 weeks: Y Opiate Contract Signed: 9. Risk Assessment Tool Provided: LOW RISK 08/09 10. Functional Assessment Tool: 11. Recreational Drug Use: Never Drug Type: Tobacco Use: Never Smoker Tobacco Type: Amount or Packs/day: How Many Years: Alcohol Use: No Frequency: Quant:
== END | disposition home or self-care (01) ==
LOC: PAIN 06:50
DX: M54.16 Radiculopathy, lumbar region (principal); G89.29 Other chronic pain; M96.1 Postlaminectomy syndrome, not elsewhere classified; M19.90 Unspecified osteoarthritis, unspecified site; I10 Essential (primary) hypertension; I48.91 Unspecified atrial fibrillation; Z98.890 Other specified postprocedural states; Z79.899 Other long term (current) drug therapy; Z88.8 Allergy status to other drugs, medicaments and biological substances; Z79.01 Long term (current) use of anticoagulants

== ENCOUNTER → 2019-08-26 | Outpatient (CLI) | payer OTHER, BC ==
[~2019-08-26] VITALS: Ht 154.9 cm; Wt 66.8 kg
[2019-08-26 09:49] VITALS: BP 136/75
--- NOTE | 2019-08-26 10:02 | NUR ---
Pain Clinic Assessment: 1. History of Osteoarthritis: EVERYWHERE History of Rheumatoid Arthritis: EVERYWHERE 2. Height: 5 ft. 1 in. 154.9 cm. Weight: 147.2 lb. oz. 66.769 kg. Patient's BMI: 27.8 3. Vital Signs: BP: 136/75 Pulse: 70 Resp: 14 Temp: 02 Sat: 99 ECG Mon: 4. Pain Intensity: 9 5. Fall Risk: Dizziness: Y Needs help standing or walking: Y Fallen in the last 3 months: N Fall risk comments: 6. Patient on Blood Thinner: XARELTO 7. History of Hypertension: N 8. Opioid Therapy greater than 6 weeks: Y Opiate Contract Signed: 9. Risk Assessment Tool Provided: LOW RISK 08/09 10. Functional Assessment Tool: 11. Recreational Drug Use: Never Drug Type: Tobacco Use: Never Smoker Tobacco Type: Amount or Packs/day: How Many Years: Alcohol Use: No Frequency: Quant:
--- NOTE | 2019-08-29 17:02 | HPC ---
[facility] [place] [address] PAIN MANAGEMENT CONSULTATION Name: BRIELLE HALE Room #: REG [facility].#: [id number] Admission: 08/26/19 Attend Phys: Dale Gilliland MD Discharge: Date of : 36 Report #: [id number] THIS REPORT FOR: //name// CC: Micheal Gilliland DATE OF SERVICE: 08/26/2019 CHIEF COMPLAINT: Followup visit for chronic pain. The patient is here today with her . She has many pain generators. We have treated them with injections over the years and she has had a number of different treatments including lumbar epidural injections, transforaminal epidural injections, knee injection and injection of the sacroiliac joint. She has generally responded very favorably to these injections without difficulty. She is grateful for the relief that they provide. She has new pain today, which is in her right knee. She would like a knee injection. Her last injection in our clinic was in June. She received 2 cortisone injections in 2019. She receives opioid medication from Dr. Micheal Mazariegos, who provides hydrocodone 7.5/325 for her 3 times daily. She denies side effects, is grateful for the pain relief and improvement in day-to-day activities that the medication allows. I reviewed her prescription drug monitoring information and there are no other providers. I believe it is quite appropriate for Dr. Mazariegos to provide her with these medications given her response and the risks of using other medications including nonsteroidal anti-inflammatory drugs. PQRS REVIEW: Positive for osteoarthritis involving multiple joints as she describes everywhere. She is 5 feet 1 inch, 147 pounds, BMI is 27.8. Her blood pressure is 136/75, heart rate 70, respirations 14. Pain intensity is 9. She is a fall risk, has some dizziness, but she has been cautious and has not fallen in the last 3 months. She uses a wheelchair inside on multiple locations. She is at risk of falling, particularly because of her use of blood thinner, Xarelto. All medications have been reviewed and reconciled. Her opioid risk tool completed in our clinic is 1, suggesting low risk of addiction. Again, she does not receive medications from our clinic. Her functional assessment score is 43/70. She denies use of tobacco. She denies use of alcohol. PHYSICAL EXAMINATION: VITAL SIGNS: As noted above. She moves independently from sitting to standing position, but she has been unstable on her feet. She has marked tenderness of the knee both medially and laterally. There is some instability with lateral testing as well as medial. She has some slight shifting also with drawer test. [address] [address] PAIN MANAGEMENT CONSULTATION Name: BRIELLE HALE Room #: REG [facility].#: [id number] Admission: 08/26/19 Attend Phys: Dale Gilliland MD Discharge: Date of : 36 Report #: [id number] Examination of the left knee reveals scar from previous surgery. She has a scar and varus deformity. IMPRESSION: 1. Severe osteoarthritis, today complaining primarily of pain in the right knee. 2. Chronic low back pain with radiculopathy, post-laminectomy and fusion. RECOMMENDATION: Right knee injection under fluoroscopic guidance. DESCRIPTION OF PROCEDURE: After informed consent, she was taken to fluoroscopic suite where she was placed supine. Skin was prepped with ChloraPrep. Skin anesthetized and a 25-gauge needle gently advanced into the lateral compartment of the knee. After negative aspiration, I injected 0.25 mL followed by another mL of Omnipaque to demonstrate an arthrogram and subpatellar location of spread. It was then followed by 4 mL of 0.5% lidocaine mixed with 40 mg of triamcinolone. She tolerated the procedure well. There were no complication. She was taken to recovery room for observation and discharged. Follow up as needed. <ELECTRONICALLY SIGNED> By: Dale Gilliland MD 08/29/19 1702 [id number] Dale Gilliland MD /nt
== END | disposition home or self-care (01) ==
LOC: PAIN 06:56
DX: M25.561 Pain in right knee (principal); M17.11 Unilateral primary osteoarthritis, right knee; M54.16 Radiculopathy, lumbar region; M96.1 Postlaminectomy syndrome, not elsewhere classified; Z98.890 Other specified postprocedural states; Z79.899 Other long term (current) drug therapy; M19.90 Unspecified osteoarthritis, unspecified site; Z79.01 Long term (current) use of anticoagulants; Z79.891 Long term (current) use of opiate analgesic; Z88.8 Allergy status to other drugs, medicaments and biological substances

== ENCOUNTER → 2020-04-02 | Outpatient (CLI) | payer OTHER, BC | LOC: SJCVCIMAG 10-23 11:00 | PROVIDERS: ATTEND Internal Medicine Cardiovascular Disease | DX: I08.1 Rheumatic disorders of both mitral and tricuspid valves (principal); I27.20 Pulmonary hypertension, unspecified; I48.91 Unspecified atrial fibrillation; R94.31 Abnormal electrocardiogram [ECG] [EKG]; I44.4 Left anterior fascicular block; I48.92 Unspecified atrial flutter; I10 Essential (primary) hypertension; E78.00 Pure hypercholesterolemia, unspecified; E11.9 Type 2 diabetes mellitus without complications; Z79.899 Other long term (current) drug therapy ==

== ENCOUNTER → 2020-04-09 | Outpatient (CLI) | payer OTHER, BC ==
[~2020-04-09] VITALS: Ht 154.9 cm; Wt 58.7 kg
--- NOTE | ~2020-04-09 | HPC ---
[facility] [place] [address] PAIN MANAGEMENT CONSULTATION Name: BRIELLE HALE Room #: REG [facility].#: [id number] Admission: 04/09/20 Attend Phys: Dale Gilliland MD Discharge: Date of : 36 Report #: [id number] THIS REPORT FOR: cc: Micheal Mazariegos MD, Eric K. MD Morgan, Richard L. MD ~ CC: Micheal Gilliland DATE OF SERVICE: 04/09/2020 CHIEF COMPLAINT: Right knee pain. The patient is here today with her to discuss pain management for her right knee. It is a nonoperative knee. They report that they have seen 4-5 surgeons. All have turned her down for knee replacement or surgery. She has a condition known as nail-patella syndrome. They were able to educate me on this, as I do not see a lot of it. Apparently, it is associated with increased incidence of rheumatoid arthritis and glaucoma. An abnormality in patellar size makes her high risk for a failed knee replacement, according to the patient. They are here today to discuss pain management options. We discussed 4 separate options: 1. Medication management. 2. Injections of various substances. 3. Ongoing therapy and strengthening. 4. Bracing. She currently is taking pain medication provided by Dr. Mazariegos. Hydrocodone has been helpful. I think her expectations are perhaps a bit high. The hydrocodone does provide relief. Her dose is very modest. She is prescribed 30 hydrocodone 10/325 tablets periodically. I have reviewed her prescription drug monitoring program information. She received 90 tablets of hydrocodone 7.5 at the beginning of January followed by a second prescription of hydrocodone 10/325 on January 17. Her most recent prescription was just for 30 tablets of hydrocodone 10/325 provided on 04/01/2020. She asked about pain medication options and I informed her that we have literally 100 different options in a variety of classes of medicines, long-acting patches, pills, liquids. All have some potential side effects, including both strong medicines such as opioids and [id number]-lozucyl nonsteroidal anti-inflammatory drugs. We had given her some options in the past, but trialing is complex complicated and requires a fair amount of assessment. She has agreed that she will continue to get her pain medication from Dr. Mazariegos. We discussed a variety of injections, including cortisone injections performed under fluoroscopic guidance in our clinic. She has also had [address] [address] PAIN MANAGEMENT CONSULTATION Name: BRIELLE HALE [id number] Admission: 04/09/20 Attend Phys: Dale Gilliland MD Discharge: Date of : 36 Report #: [id number] injections on more than one occasion that have not provided relief. I briefly discussed stem cells, although they are extremely expensive, often not covered by insurance and have had a mixed review, may not provide the pain relief that she is asking for. We discussed ongoing strengthening exercises. At 85 years of age, these will be limited. Things that she can do in her house to strengthen her quadriceps and hamstring muscles and continuing to remain active will be helpful in stabilizing the knee, although pain relief will be modest with those efforts. Mostly, those are to help her with function. She can stand for 5 minutes before she has to sit down. For a lot of patients, this would be enough to provide them necessary mobility at 85. She would like to be able to be more mobile. She uses a walker and has had a few falls. We discussed bracing and she has one. She lamented the fact that if she wore the brace which helps, she would have to wear it for the rest of her life. At that point, we discussed Gio Ramos Cayey who suffered from polio and wore braces on both legs every single day of his life! MEDICATIONS: Reviewed and reconciled and are noted on the electronic medical record. ALLERGIES: NEURONTIN, AUGMENTIN, CIPRO AND IRON. Impact pain score is 60/70 suggesting dramatic impacts of her pain on day-to-day activities including enjoyment of life 05/16, walking ability 05/16 and mood 05/16. PHYSICAL EXAMINATION: GENERAL: Depressed female. VITAL SIGNS: Blood pressure is 141/70, heart rate 62, respirations 16, O2 sat 100. She is 5 feet 1 inch, 141 pounds, BMI is 26.8. CHEST: Clear. CARDIAC: Rhythm was regular. MUSCULOSKELETAL: She has tenderness around the right knee, pain with flexion, extension, and she has some instability with lateral testing. Most of her pain is on the lateral aspect of her knee, which is consistent with the degenerative changes seen on plain x-rays. 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 RECOMMENDATIONS: We will proceed today with a cortisone injection. We will see if we can provide some meaningful relief for good duration of response. Expectations for the injection were reviewed in some detail for this couple. Potential risks and benefits discussed as well. She is anxious to proceed. [address] [address] PAIN MANAGEMENT CONSULTATION Name: BRIELLE HALE Room #: REG [facility]#: [id number] Admission: 04/09/20 Attend Phys: Dale Gilliland MD Discharge: Date of : 36 Report #: [id number] PROCEDURE: Right knee injection under fluoroscopic guidance. After informed consent, she was taken to fluoroscopic suite. She was placed in the prone position. The knee was flexed 45 degrees. Skin was anesthetized medially, initially with some 1% lidocaine. She complained that her pain was mostly lateral, and I repositioned my local anesthetic to the lateral aspect of the knee joint below the patella. Skin was anesthetized and a 25-gauge 2-inch needle was advanced into the joint space, and 0.25 mL of Omnipaque was injected demonstrating an excellent arthrogram. This was then followed by 4 mL of 0.5% bupivacaine mixed with 40 mg of triamcinolone. She tolerated the procedure well and was observed for 45 minutes and discharged. There were no complications. Followup visit planned in 1-2 months. By: [id number] Dale Gilliland MD /nt
[2020-04-09 09:05] VITALS: BP 122/76
--- NOTE | 2020-04-09 09:19 | NUR ---
Pain Clinic Assessment: 1. History of Osteoarthritis: EVERYWHERE History of Rheumatoid Arthritis: EVERYWHERE 2. Height: 5 ft. 1 in. 154.9 cm. Weight: 129.4 lb. oz. 58.695 kg. Patient's BMI: 24.5 3. Vital Signs: BP: 122/76 Pulse: 75 Resp: 14 Temp: 02 Sat: 100 ECG Mon: 4. Pain Intensity: 10 5. Fall Risk: Dizziness: Y Needs help standing or walking: Y Fallen in the last 3 months: Y Fall risk comments: 6. Patient on Blood Thinner: XARELTO 7. History of Hypertension: N 8. Opioid Therapy greater than 6 weeks: Y Opiate Contract Signed: 9. Risk Assessment Tool Provided: LOW RISK 08/09 10. Functional Assessment Tool: 60/ 11. Recreational Drug Use: Never Drug Type: Tobacco Use: Never Smoker Tobacco Type: Amount or Packs/day: How Many Years: Alcohol Use: No Frequency: Quant:
== END | disposition home or self-care (01) ==
LOC: PAIN 01-23 07:57
PROVIDERS: ATTEND Anesthesiology Pain Medicine
DX: M25.561 Pain in right knee (principal); M17.11 Unilateral primary osteoarthritis, right knee; Z79.899 Other long term (current) drug therapy; Z88.8 Allergy status to other drugs, medicaments and biological substances

== ENCOUNTER → 2020-05-25 | Outpatient (CLI) | payer OTHER, BC | LOC: BC 09:44 | PROVIDERS: ATTEND Internal Medicine | DX: Z12.31 Encounter for screening mammogram for malignant neoplasm of breast (principal) ==

== ENCOUNTER → 2020-07-24 | Outpatient (CLI) | payer OTHER, BC | LOC: CAT 10:13 | PROVIDERS: ATTEND Orthopaedic Surgery | DX: M71.21 Synovial cyst of popliteal space [Baker], right knee (principal); I25.10 Atherosclerotic heart disease of native coronary artery without angina pectoris; M25.761 Osteophyte, right knee; M25.461 Effusion, right knee ==

== ENCOUNTER → 2020-08-03 | Outpatient (CLI) | payer OTHER, BC | LOC: SJCVCIMAG 10:50 | PROVIDERS: ATTEND Internal Medicine Cardiovascular Disease | DX: I73.9 Peripheral vascular disease, unspecified (principal) ==

== ENCOUNTER → 2020-08-31 | Outpatient (CLI) | payer OTHER, BC | LOC: SJCVCIMAG 08:51 | PROVIDERS: ATTEND Internal Medicine Cardiovascular Disease | DX: I45.10 Unspecified right bundle-branch block (principal); I49.3 Ventricular premature depolarization; I48.91 Unspecified atrial fibrillation; I48.92 Unspecified atrial flutter; E78.5 Hyperlipidemia, unspecified; I10 Essential (primary) hypertension; E11.9 Type 2 diabetes mellitus without complications; Z79.84 Long term (current) use of oral hypoglycemic drugs; Z79.899 Other long term (current) drug therapy ==

== ENCOUNTER → 2021-04-05 | Outpatient (CLI) | payer OTHER, BC | LOC: SJCVC 10:19 | PROVIDERS: ATTEND Internal Medicine Cardiovascular Disease | DX: R94.31 Abnormal electrocardiogram [ECG] [EKG] (principal); I48.0 Paroxysmal atrial fibrillation; I10 Essential (primary) hypertension; E78.00 Pure hypercholesterolemia, unspecified; E11.9 Type 2 diabetes mellitus without complications; K21.9 Gastro-esophageal reflux disease without esophagitis; E78.5 Hyperlipidemia, unspecified; Z72.89 Other problems related to lifestyle; Z79.899 Other long term (current) drug therapy; Z79.84 Long term (current) use of oral hypoglycemic drugs; Z88.1 Allergy status to other antibiotic agents; Z88.8 Allergy status to other drugs, medicaments and biological substances; Z88.6 Allergy status to analgesic agent ==

== ENCOUNTER → 2021-05-10 | Outpatient (CLI) | payer OTHER, BC | LOC: BC 09:05 | PROVIDERS: ATTEND Internal Medicine | DX: Z12.31 Encounter for screening mammogram for malignant neoplasm of breast (principal); N64.89 Other specified disorders of breast ==

== ENCOUNTER → 2021-05-27 | Outpatient (CLI) | payer OTHER, BC ==
[~2021-05-27] VITALS: Ht 154.9 cm; Wt 56.2 kg
[~2021-05-27] MED LIST changes: +ADVIL200 M1 PO; +RISPERDAL0.5 MG PO; +SERTRALINE HCL100 MG PO
[2021-05-27 10:55] VITALS: BP 127/61
--- NOTE | 2021-05-27 11:05 | NUR ---
Pain Clinic Assessment: 1. History of Osteoarthritis: JOINTS BACK History of Rheumatoid Arthritis: EVERYWHERE 2. Height: 5 ft. 1 in. 154.9 cm. Weight: 124.0 lb. oz. 56.246 kg. Patient's BMI: 23.4 3. Vital Signs: BP: 127/61 Pulse: 64 Resp: 18 Temp: 02 Sat: 97 ECG Mon: 4. Pain Intensity: 7 5. Fall Risk: Dizziness: N Needs help standing or walking: N Fallen in the last 3 months: N Fall risk comments: 6. Patient on Blood Thinner: None 7. History of Hypertension: N 8. Opioid Therapy greater than 6 weeks: Y Opiate Contract Signed: 9. Risk Assessment Tool Provided: LOW RISK 1 10. Functional Assessment Tool: 60/70 11. Recreational Drug Use: Never Drug Type: Tobacco Use: Never Smoker Tobacco Type: Amount or Packs/day: How Many Years: Alcohol Use: No Frequency: Quant:
== END ==
LOC: PAIN 06:59
PROVIDERS: ATTEND Anesthesiology Pain Medicine
DX: G89.29 Other chronic pain (principal); M96.1 Postlaminectomy syndrome, not elsewhere classified; M16.0 Bilateral primary osteoarthritis of hip; M53.3 Sacrococcygeal disorders, not elsewhere classified; M54.10 Radiculopathy, site unspecified; F32.A Depression, unspecified; Z96.643 Presence of artificial hip joint, bilateral; Z96.651 Presence of right artificial knee joint; F11.90 Opioid use, unspecified, uncomplicated; Z79.899 Other long term (current) drug therapy; Z88.1 Allergy status to other antibiotic agents

== ENCOUNTER → 2021-06-07 | Outpatient (CLI) | payer OTHER, BC ==
[~2021-06-07] VITALS: Ht 154.9 cm; Wt 54.4 kg
[2021-06-07 13:11] VITALS: BP 134/50
--- NOTE | 2021-06-07 13:19 | NUR ---
Pain Clinic Assessment: 1. History of Osteoarthritis: JOINTS BACK History of Rheumatoid Arthritis: EVERYWHERE 2. Height: 5 ft. 1 in. 154.9 cm. Weight: 120.0 lb. oz. 54.432 kg. Patient's BMI: 22.7 3. Vital Signs: BP: 134/50 Pulse: 66 Resp: 14 Temp: 02 Sat: 100 ECG Mon: 4. Pain Intensity: 5 5. Fall Risk: Dizziness: N Needs help standing or walking: Y Fallen in the last 3 months: N Fall risk comments: 6. Patient on Blood Thinner: None 7. History of Hypertension: N 8. Opioid Therapy greater than 6 weeks: Y Opiate Contract Signed: 9. Risk Assessment Tool Provided: LOW RISK 1 10. Functional Assessment Tool: 60/70 11. Recreational Drug Use: Never Drug Type: Tobacco Use: Never Smoker Tobacco Type: Amount or Packs/day: How Many Years: Alcohol Use: No Frequency: Quant:
== END | disposition home or self-care (01) ==
LOC: PAIN 07:51
PROVIDERS: ATTEND Anesthesiology Pain Medicine
DX: M46.1 Sacroiliitis, not elsewhere classified (principal); G89.29 Other chronic pain; M19.90 Unspecified osteoarthritis, unspecified site; Z98.890 Other specified postprocedural states; Z79.899 Other long term (current) drug therapy; Z88.8 Allergy status to other drugs, medicaments and biological substances